=== PATIENT | male | born 1965 | race Caucasian/White ===

== ENCOUNTER 2017-02-12 06:42 | Inpatient (IN) ==
[2017-02-12] MEDS ORDERED: Heparin 1,000 UNITS/500 mL NS 500 ML ONE (06:49)
[2017-02-12] MEDS ORDERED: *HR* Propofol 200 MG/20 ML VIAL IVP ONE (07:01)
[2017-02-12] MEDS ORDERED: *HR* Midazolam HCl 2 MG/2 ML VIAL ONE ×2 (07:01→08:20)
[2017-02-12] MEDS ORDERED: *HR* FentaNYL (PF) 100 MCG/2 ML VIAL ONE (07:01)
[2017-02-12] MEDS ORDERED: *HR* Succinylcholine 200 MG/10 ML VIAL IVP ONE (07:02)
[2017-02-12] MEDS ORDERED: Lidocaine -MPF 4% 5 ML AMPUL ONE (07:02)
[2017-02-12] MEDS ORDERED: *HR* Rocuronium Bromide 50 MG/5 ML VIAL ONE (07:02)
[2017-02-12] MEDS ORDERED: Lidocaine -MPF 2% 2 ML VIAL ONE ×2 (07:02→09:01)
[2017-02-12] MEDS ORDERED: *HR* Remifentanil 2 MG VIAL IVP ONE ×2 (07:02→10:54)
[2017-02-12] MEDS ORDERED: *HR* Phenylephrine 10 MG/ML VIAL ONE ×2 (07:02→10:58)
[2017-02-12] MEDS ORDERED: Albuterol 2.5 MG/3 ML NEBULIZER IH ONE (07:04)
[2017-02-12] MEDS ORDERED: CeFAZolin Pre 2,000 MG/100 ML 2,000 MG/100 ML BAG IVPB ONE (07:04)
[2017-02-12] MEDS ORDERED: Ringers Solution, Lactated 1,000 ML IVC SCH (07:15)
[2017-02-12] MEDS ORDERED: Heparin 1,000 UNITS/500 mL NS 1,500 ML ONE (07:35)
--- NOTE | 2017-02-12 07:36 | Anesthesia Evaluation PreOp ---
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 Other Medical History: Denies Any Significant HX Anesthesia History: No Prior Anesthetic Complications Alcohol Use: heavy, recent Drug use: none Medications and Allergies Atenolol 100 mg PO DAILY 02/08/17 [History] Chlorthalidone 25 mg PO DAILY 02/08/17 [History] Cilostazol [Pletal] 100 mg PO BID 02/08/17 [History] Hydroxyzine HCl 25 mg PO HS PRN 02/08/17 [History] Lisinopril [Zestril] 20 mg PO DAILY 02/08/17 [History] Allergies aspirin Allergy (Verified 02/12/17 07:24) Itching - Meds/Allergy Pre-op Review Medications Reviewed: Yes Allergies Reviewed: Yes Beta Blockers on Current Med List: Yes (Took Atenolol today 0500) Anesthesia Results - Labs Laboratory Tests 01/28/17 01/28/17 11:31 11:31 Hgb 16.2 Hct 49.4 Plt Count 281 Sodium 131 L Potassium 4.1 BUN 7 L Creatinine 0.75 - Imaging EKG: report reviewed (NSR) Anesthesia Exam O2 Sat Height 1.73 m Height 1.73 m Height 1.73 m Weight 88.451 kg Weight 88.451 kg Weight 88.451 kg O2 Sat by Pulse Oximetry 99 Vital Signs Temp Pulse Resp BP Pulse Ox 99.1 F 84 18 138/95 99 02/12/17 07:14 02/12/17 07:14 02/12/17 07:14 02/12/17 07:14 02/12/17 07:14 Height: 5'8 Weight: 195 lbs NPO (# of Hours): MN Pain Scale: 0 - HEENT Pupil (Motor): Pupils equal, EOMI Mallampati: II Teeth: Normal Oral Opening: Greater than 3 - SCHOOL PSYCHOLOGICAL EXAMINER LOC: Oriented SCHOOL PSYCHOLOGICAL EXAMINER Motor: Normal RUE, Normal LUE, Normal RLE, Normal LLE, Normal Face SCHOOL PSYCHOLOGICAL EXAMINER Sensory: Normal: RUE, LUE, RLE, LLE, Face - Cardiac Rhythm: Regular Murmur: None JVD: No Carotid Bruit: No - Pulmonary Breath Sounds: bilateral Clear Respiratory Effort: Symmetrical Anesthesia Assess/Plan ASA Score: 3 (PAD HTN) Modified [place] Scale for Level of Consciousness: Cooperative, oriented, and tranquil Anesthetic Plan: General Monitoring Plan: Standard Monitors, A-Line Recovery Plan: PACU (Discussed GA, agrees to proceed)
--- NOTE | 2017-02-12 07:49 | History & Physical Report ---
Date of Encounter: 02/12/17 Time of Encounter: 07:48 24 Hour HP Update - Instructions Instructions: If the History and Physical is less than 30 days old and was completed prior to A.M. admission and or procedure and has NOT been updated on calendar day of procedure please complete this update prior to performing procedure. - Update Patient reports changes in Medical Condition: No Changes in examination, assessment, or condition: No Changes in Medication: No Preop tests/diagnostics Reviewed: Yes Surgery Remains Indicated: Yes Consent for Planned Operative Procedure(s) Verified: Yes - Pre-Operative Checklist Preoperative Checklist Indicated: Yes Prophylactic Antibiotic Ordered: Yes Home Medications Include Beta Benedicto: Yes Beta Benedicto Taken Today (Day of Surgery): Yes Beta Benedicto Taken Yesterday (Day Prior to Surgery): Yes Is VTE Prophylaxis Indicated?: Yes
[2017-02-12] MEDS ORDERED: EPHEDrine 50 MG/ML VIAL ONE (08:43)
[2017-02-12] MEDS ORDERED: *HR* Heparin 5,000 UNIT/ML VIAL ONE (08:55)
[2017-02-12] MEDS ORDERED: Water for inj. (sterile) 10 ML IV ONE (08:55)
[2017-02-12] MEDS ORDERED: Dexamethasone 4 MG/ML VIAL ONE (09:01)
[2017-02-12] MEDS ORDERED: Ondansetron 4 MG/2 ML VIAL ONE (09:01)
[2017-02-12] MEDS ORDERED: *HR* HYDROmorphone 2 MG/ML SYRINGE ONE (10:10)
[2017-02-12] MEDS ORDERED: Dexamethasone 4 MG/ML VIAL IVP ONE (10:11)
[2017-02-12] MEDS ORDERED: *HR* Labetalol 100 MG/20 ML MDV IVP PRN (10:11)
[2017-02-12] MEDS ORDERED: *HR* HYDROmorphone (PF) 1 MG/ML SYRINGE IVP PRN (10:11)
[2017-02-12] MEDS ORDERED: Ketorolac 15 MG/ML VIAL IVP ONE (10:11)
[2017-02-12] MEDS ORDERED: *HR* Meperidine 25 MG/ML SYRINGE IVP PRN (10:11)
[2017-02-12] MEDS ORDERED: Ondansetron 4 MG/2 ML VIAL IVP ONE (10:11)
--- NOTE | 2017-02-12 10:26 | Anesthesia Procedures ---
Date of Encounter: 02/12/17 Time of Encounter: 08:15 Procedures: Anesthesia - Arterial Line Consent obtained: verbal consent Time out performed: Yes Sedation: Versed (mg): 4 (documented on anesthetic record) Supplemental Oxygen via Nasal Cannula (L/min): 15 (via pre-O2 Facemask) Local Anesthetic: Lidocaine 1% Amount of Anesthetic used (mls): 0.5 Size (Gauge): 20 Length (inches): 1 3/4 Technique Used: sterile prep, direct puncture technique Post-Procedure: line taped into place Patient tolerated procedure: well Complications: none Site: Radial L Vitals: see anesthesia record
[2017-02-12] MEDS ORDERED: Heparin 1,000 UNITS/500 mL NS 1,000 ML ONE (11:04)
--- NOTE | 2017-02-12 13:34 | Operative Note ---
Date of procedure: 02/12/17 Pre-op diagnosis: PAD/claudication Post-op diagnosis: same Procedure: right MANAGER WIRELESS, Ext Iliac, SFA, and Profunda endarterectomy with bovine patch angioplasty right iliac angiogram right lower ext angiogram right SFA SPORTS MANAGEMENT PROFESSOR balloon angioplasty with 5 x 200 mm balloon left MANAGER WIRELESS endarterectomy left to right femoral-femoral bypass with 6 mm PTFE Complications: none Anesthesia: GETA Surgeon: Darvin Garg Estimated blood loss (cc): 250 Specimen: none Condition: stable Disposition: PACU Procedure in Detail: History Christiano Christianson is a 51-year-old white male who comes to the operating room today for a combination of both inflow and outflow occlusive disease. He has been treated initially with pharmacologic agents. He had no response. He underwent Celestine last week that demonstrated occlusion of the entire right iliac system as well as occlusion of the right common femoral artery and the right superficial femoral artery. Due to the number of vessels involved was not an appropriate candidate for an endovascular intervention in the interim suite and so he now comes to operating room. His symptoms are lifestyle threatening and he has failed conservative management. Procedure After informed consent was obtained the patient was taken to the operating room. General endotracheal anesthesia was established. The abdomen and right lower extremity and left upper thigh were sterilely prepped and draped. A timeout protocol was observed. An incision was then made in the right groin to expose the femoral artery. This was a long and wide dissection so that the external iliac as well as the femoral artery and proximal superficial femoral and profunda femoris arteries were exposed and controlled. The vessel had no pulse and had menstruation of marked atherosclerotic disease. Heparin was then administered area the artery was then opened in the distal aspect of the common femoral artery and the arteriotomy was carried proximally for the length of the vessel and then distally into the proximal superficial femoral artery. The plaque was a thick heterogeneous calcific plaque. A formal endarterectomy was then performed of the distal external iliac artery, the entire common femoral artery, the proximal superficial femoral artery, and the orifice of the right profunda femoris artery. With this done a bovine pericardial patch angioplasty was performed and was sewn into position using 2 6-0 Prolene sutures. The next step of the procedure was to address the inflow issue on the right. An 18-gauge needle was then used to puncture the bovine pericardial patch. A short 6 [place] sheath was placed. An antegrade was then performed of the right iliac artery system via the sheath. With this nonselective angiogram a Glidewire was then inserted into the chronic total occlusion of the right iliac system. This wire passed into a dissection plane and could not be passed back into the true lumen. With these attempts at an endovascular solution to this right iliac system being unsuccessful this area was abandoned and the patient would then need bypass grafting. The 6 [place] sheath was then redirected into the superficial femoral artery. An angiogram was obtained of the right lower extremity. This demonstrated occlusion of the superficial femoral artery and a patent profunda femoris. The endarterectomy of the orifice of the profunda femoris artery was widely patent. Then under fluoroscopic control a Glidewire was inserted into the right leg. It was advanced through the right superficial femoral chronic total occlusion. Confirmation of passing a wire into the distal true lumen was performed. A 5 x 200 mm balloon was then inserted into the right superficial femoral artery. This was inflated. After a number of inflations the vessel was restudied with completion angiogram through the 6 [place] sheath. This demonstrated patency of the vessel and mormon of pulsatile flow and continuous flow into the popliteal system. With this now accomplished attention was then directed to the left side. The left common femoral artery was then exposed through an oblique incision. Dissection was carried down through the soft tissue to reveal the femoral artery and the femoral bifurcation. Control was obtained of the vessels. A deep subcutaneous anus tunnel was then created. A 6 mm PTFE graft was selected for the left to right femoral-femoral bypass. Upon opening the left common femoral artery a significant amount of plaque was encountered. This plaque required endarterectomy which was a formal endarterectomy of the distal half of the common femoral artery and the orifice of the superficial femoral artery. Then using the bypass graft as a patch the anastomosis over the left common femoral artery was performed using endograft to side of artery with 6-0 Prolene. The graft was then clamped and hemostasis achieved. Attention was then directed to the recipient anastomosis at the right groin. This was made over the bovine pericardial patch. The 6 [place] sheath was then removed and a patch Army was performed. An end of graft to side of the patched right common femoral artery was then performed using 6-0 Prolene. After appropriate backbleeding and flushing the graft was opened. Excellent pulsatile flow was achieved. The patient demonstrated Doppler signals at the cells pedis posterior tibial artery at the right ankle. With this done the 2 groin incisions were irrigated. Hemostasis was achieved in these incisions. The wounds were then closed using absorbable suture. There were no intraoperative complications. The patient tolerated the procedure well. The patient was extubated in the operating room and taken to the recovery room in stable condition.
--- NOTE | 2017-02-12 14:31 | Anesthesia Evaluation Post Op ---
Date of Encounter: 02/12/17 Time of Encounter: 14:30 - Vital Signs Vital Signs: Vital Signs/O2 Sat/Glucose, Most Recent Temp Pulse Resp BP Pulse Ox 97.7 F 85 16 110/71 93 02/12/17 14:08 02/12/17 14:18 02/12/17 14:18 02/12/17 14:18 02/12/17 14:18 - Lungs Lungs: Clear Ascult./Percussion - Airway Airway: Non-obstructed - Cardiovascular Regular Rate - Mental Status Mental Status: Alert & Oriented, Answers Appropriately - Pain Pain Scale: 0 Pain Scale used: Numeric (1 - 10) - Nausea Vomiting Nausea Vomiting: Not Present - Hydration Hydration: Ice chips, Davidson catheter Notes: 02/12/17 14:31 AAOx3,VSS with no complications - Discharge PostOp Status: Transfer Patient to floor
[2017-02-12] MEDS ORDERED: Naloxone 0.4 MG/ML INJ IVP PRN (14:53)
[2017-02-12] MEDS ORDERED: *HR* Morphine 2 MG/ML SYRINGE IVP PRN ×2 (14:53)
[2017-02-12] MEDS ORDERED: Acetaminophen 325 MG TABLET PO PRN (14:53)
[2017-02-12] MEDS ORDERED: hydrOXYzine pamoate 25 MG CAPSULE PO PRN (14:53)
[2017-02-12] MEDS ORDERED: Ondansetron 4 MG/2 ML VIAL IVP PRN (14:53)
[2017-02-12] MEDS: ceFAZolin 2,000 MG in D5% in Water 100 ML IVPB SCH ×2 (15:43→23:39)
[2017-02-12] MEDS: *HR* HYDROcodone/Acet 5/325 mg TABLET PO PRN (23:52)
[2017-02-13] MEDS: *HR* HYDROcodone/Acet 5/325 mg TABLET PO PRN (05:58)
[2017-02-13 06:14] LABS: Basophils % 0.2 %; Eosinophils # 0.2 K/mcL (0.0-0.6); Eosinophils % 1.2 %; Hemoglobin 13.1 g/dL (12.9-16.9); Immature Granulocytes % 0.4 % (0-4); Lymphocytes # 2.6 K/mcL (0.6-4.6); Lymphocytes % 19.6 %; Mean Corpuscular HGB Conc 33.6 g/dL (31.6-35.5); Mean Corpuscular Hemoglobin 33.1 pg (28.0-33.3); Mean Corpuscular Volume 98.5 fL (83.0-100.0); Mean Platelet Volume 9.7 fL (9.4-12.4); Monocytes # 1.1 K/mcL (0.0-1.3); Monocytes % 8.6 %; Neutrophils # 9.1 K/mcL (1.6-8.9); Platelet Count 215 K/mcL (140-400); Red Blood Count 3.96 M/mcL (4.19-5.50); Red Cell Distribution Width 12.8 % (11.5-14.5)
[2017-02-13 06:26] LABS: BUN/Creatinine Ratio 14 (6-26); Blood Urea Nitrogen 9 mg/dL (8-26); Calcium 8.5 mg/dL (8.6-10.8); Carbon Dioxide 23 mEq/L (19-29); Chloride 103 mEq/L (98-109); Glucose 101 mg/dL (70-99); Osmolality,Calculated 279 (280-300); Potassium 4.3 mEq/L (3.5-4.5); Sodium 135 mEq/L (136-145); eGFR For African Americans > 60 (> 60); eGFR For Non-African Americans > 60 (> 60)
[2017-02-13] MEDS ORDERED: Lisinopril 20 MG TABLET PO SCH (09:00)
[2017-02-13] MEDS: ceFAZolin 2,000 MG in D5% in Water 100 ML IVPB SCH (09:41)
[2017-02-13 12:31] VITALS: BP 116/71
--- NOTE | 2017-02-13 16:42 | Discharge Summary ---
Date of Encounter: 02/13/17 Time of Encounter: 16:40 - Discharge Diagnosis (1) PAD (peripheral artery disease) Priority: Primary Status: Acute Comments: Patient has severe lifestyle limiting claudication. Angiogram demonstrated right common iliac and external iliac artery occlusion and right common femoral and superficial femoral artery occlusion. He was admitted for a combination of endovascular and open revascularization. - Discharge Medications Prescriptions: HYDROcodone/Acet 5/325 mg [[place] 5-325 mg] 1 tab PO Q6HR PRN #14 tablet PRN Reason: Moderate Pain Home Medications: Atenolol 100 mg PO DAILY 02/08/17 [History] Chlorthalidone 25 mg PO DAILY 02/08/17 [History] Cilostazol [Pletal] 100 mg PO BID 02/08/17 [History] Hydroxyzine HCl 25 mg PO HS PRN 02/08/17 [History] Lisinopril [Zestril] 20 mg PO DAILY 02/08/17 [History] HYDROcodone/Acet 5/325 mg [[place] 5-325 mg] 1 tab PO Q6HR PRN #14 tablet [Rx] Allergies/Adverse Reactions: Allergies aspirin Allergy (Verified 02/12/17 07:24) Itching Date of admission: 02/12/17 14:43 Primary care physician: Mary Garcia Consults: nothing Procedure(s) Performed: [id number] femoral-femoral bypass graft with bilateral femoral endarterectomies and right superficial femoral artery ETL DATA ARCHITECT balloon angioplasty Discharging clinician: Darvin Garg Anticipated date of discharge: 02/13/17 - Patient Status Disposition: Home, Self-Care Condition: Good Functional capacity at discharge: independent ambulation Overall status at discharge: patient is progressing back to baseline - Discharge Instructions Follow Up With: Mary Alfredo MD [Primary Care Provider] - 02/20/17 2:00 pm () Darvin Garg MD [Partnered Physician] - 03/06/17 1:30 pm Additional Instructions: Keep groin incisions dry for total of 5 days following surgery. No manual labor. No lifting greater than 10 pounds. No automobile driving. Patient is encouraged to walk 20 minutes twice a day. He may use stairs when necessary. Patient may walk both inside and outside when necessary. Patient is to resume usual home medications. - Diet and Activity Activity: increase activity as tolerated Diet: advance to your usual diet - Hospital Course Hospital course: Mr. Velasquez is a 51 year old male This severe lifestyle limiting claudication and multilevel occlusive disease. He was taken to the operating room for an extensive revascularization for both inflow and outflow obstruction. The patient tolerated the procedure well. Postoperatively he had a warm right foot with excellent Doppler signals. The patient had an uneventful postoperative recovery. He was felt fit for discharge on postoperative day #1. - Time Spent with Patient Total time spent providing and/or coordinating discharge services: Exam General: Present: Conversant, No Apparent Distress HEENT: Present: Atraumatic, Normocephaly Neck: Absent: JVD Neuro: Present: Alert and responsive, No focal deficits noted Abdomen: Present: Soft, Non-tender Vascular: Present: Normal capillary refill, Surgical incisions (Surgical incisions are clean and dry. There is no hematoma.), Other (Patient has excellent Doppler signals at the right ankle.) Skin: Present: No rashes noted on visualized skin Musculoskeletal: Present: No Chest Wall Tenderness - VTE Documentation of Mechanical Device: Intermittent pneumatic compression device
== END 2017-02-13 17:16 | disposition home or self-care (01) | DRG 271 ==
LOC: SAMDAY 06:42 → 2NNU 14:43
PROVIDERS: ADMIT Surgery Vascular Surgery; ATTEND Surgery Vascular Surgery
PROC: VASFFBG (ICD-10-PCS; 2017-02-12 08:15)

== ENCOUNTER 2018-01-14 06:12 | Inpatient (IN) ==
[2018-01-14] MEDS ORDERED: CeFAZolin Syr 2,000MG/20 ML 2,000 MG/20 ML SYRINGE IVPB ONE (06:28)
[2018-01-14] MEDS ORDERED: Albuterol 2.5 MG/3 ML NEBULIZER IH ONE (06:29)
[2018-01-14] MEDS ORDERED: Ringers Solution, Lactated 1,000 ML IVC SCH (06:30)
[2018-01-14] MEDS ORDERED: Albuterol 2.5 MG/3 ML NEBULIZER ONE (06:31)
--- NOTE | 2018-01-14 06:46 | Anesthesia Evaluation PreOp ---
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 Other Medical History: Denies Any Significant HX Anesthesia History: No Prior Anesthetic Complications, Past Anesthesia ( multiple vascular surgeries) Alcohol Use: occasionally, recent Drug use: none Medications and Allergies Atenolol 100 mg PO DAILY 02/08/17 [History] Chlorthalidone 25 mg PO DAILY 02/08/17 [History] Cilostazol [Pletal] 100 mg PO BID 02/08/17 [History] Lisinopril [Zestril] 20 mg PO DAILY 02/08/17 [History] hydrOXYzine HCl [Hydroxyzine HCl] 25 mg PO HS PRN 02/08/17 [History] HYDROcodone/Acet 5/325 mg [[place] 5-325 mg] 1 tab PO Q6HR PRN #14 tablet [Rx] 3 Allergy/AdvReac Type Severity Reaction Status Date / Time aspirin Allergy Itching Verified 02/12/17 07:24 - Meds/Allergy Pre-op Review Medications Reviewed: Yes Allergies Reviewed: Yes Beta Blockers on Current Med List: Yes If Beta Blockers taken, Date/Time (Last Dose taken): today 514 Anesthesia Results - Labs Laboratory Tests 01/06/18 01/06/18 01/06/18 10:27 10:27 10:27 Hgb 17.0 H Hct 51.0 H Plt Count 267 PT 11.6 INR 1.1 APTT 29.0 Sodium 138 Potassium 3.9 BUN 9 Creatinine 0.72 - Imaging EKG: report reviewed (SINUS RHYTHM) Anesthesia Exam Selected Entries 01/14/18 06:31 Temperature 98.7 F Pulse Rate 83 Respiratory Rate 18 Blood Pressure 133/89 O2 Sat by Pulse Oximetry 97 Weight: 83kg NPO (# of Hours): 8 - HEENT Pupil (Motor): EOMI Mallampati: II Teeth: Normal Oral Opening: Greater than 3 - MAINTENANCE REPAIRER LOC: Oriented MAINTENANCE REPAIRER Motor: Normal RUE, Normal LUE, Normal RLE, Normal LLE, Normal Face MAINTENANCE REPAIRER Sensory: Normal: RUE, LUE, RLE, LLE, Face - Cardiac Rhythm: Regular Murmur: None - Pulmonary Breath Sounds: bilateral Clear Respiratory Effort: Symmetrical Anesthesia Assess/Plan ASA Score: 3 Modified [place] Scale for Level of Consciousness: Cooperative, oriented, and tranquil Anesthetic Plan: General Monitoring Plan: Standard Monitors, A-Line Recovery Plan: PACU (agrees to GA and lines)
[2018-01-14] MEDS ORDERED: Heparin 1,000 UNITS/500 mL 500 ML ONE (07:10)
[2018-01-14] MEDS ORDERED: Lidocaine -MPF 1% 2 ML VIAL ONE (07:14)
[2018-01-14] MEDS ORDERED: Heparin 1,000 UNITS/500 mL 1,500 ML ONE (07:20)
[2018-01-14] MEDS ORDERED: *HR* Propofol 200 MG/20 ML VIAL IVP ONE (07:23)
[2018-01-14] MEDS ORDERED: Dexamethasone 4 MG/ML VIAL ONE ×2 (07:23→10:49)
[2018-01-14] MEDS ORDERED: Lidocaine -MPF 4% 5 ML AMPUL ONE (07:23)
[2018-01-14] MEDS ORDERED: *HR* Midazolam HCl 2 MG/2 ML VIAL ONE (07:23)
[2018-01-14] MEDS ORDERED: Lidocaine -MPF 2% 2 ML VIAL ONE ×2 (07:23→07:25)
[2018-01-14] MEDS ORDERED: *HR* FentaNYL (PF) 100 MCG/2 ML VIAL ONE (07:23)
[2018-01-14] MEDS ORDERED: *HR* Succinylcholine 200 MG/10 ML VIAL IVP ONE (07:23)
[2018-01-14] MEDS ORDERED: Ondansetron 4 MG/2 ML VIAL ONE ×2 (07:23→10:49)
[2018-01-14] MEDS ORDERED: *HR* Phenylephrine 10 MG/ML VIAL ONE ×3 (07:24→12:12)
[2018-01-14] MEDS ORDERED: *HR* Remifentanil 2 MG VIAL IVP ONE ×2 (07:31→11:02)
--- NOTE | 2018-01-14 07:32 | History & Physical Report ---
Date of Encounter: 01/14/18 Time of Encounter: 07:25 24 Hour HP Update - Instructions Instructions: If the History and Physical is less than 30 days old and was completed prior to A.M. admission and or procedure and has NOT been updated on calendar day of procedure please complete this update prior to performing procedure. - Update Patient reports changes in Medical Condition: No Changes in examination, assessment, or condition: No Changes in Medication: No Preop tests/diagnostics Reviewed: Yes Surgery Remains Indicated: Yes Consent for Planned Operative Procedure(s) Verified: Yes - Pre-Operative Checklist Preoperative Checklist Indicated: Yes Prophylactic Antibiotic Ordered: Yes Home Medications Include Beta Benedicto: Yes Beta Benedicto Taken Today (Day of Surgery): Yes Beta Benedicto Taken Yesterday (Day Prior to Surgery): Yes Is VTE Prophylaxis Indicated?: Yes
[2018-01-14] MEDS ORDERED: Isovue-300 50 ML VIAL IVP ONE (08:19)
[2018-01-14] MEDS ORDERED: *HR* Heparin 5,000 UNIT/ML VIAL ONE ×2 (08:24→10:16)
[2018-01-14] MEDS ORDERED: Ketamine *HR* 500 MG/10 ML MDV ONE (08:24)
[2018-01-14] MEDS ORDERED: *HR* Promethazine 25 MG/ML VIAL IVP PRN (09:13)
[2018-01-14] MEDS ORDERED: *HR* Metoprolol 5 MG/5 ML VIAL IVP PRN (09:13)
[2018-01-14] MEDS ORDERED: *HR* PHENYLEPHRINE 1,000 MCG/10 ML SYRINGE IVP ONE ×3 (10:55→11:31)
[2018-01-14] MEDS ORDERED: Heparin 1,000 UNITS/500 mL 1,000 ML ONE (12:25)
[2018-01-14 12:36] LABS: ABG Base Excess -3 mEq/L (-2 to 3); ABG Chloride 106 mEq/L (98-107); ABG Glucose 141 mg/dL (60-95); ABG HCO3 24 mEq/L (21-27); ABG Oxygen Saturation 99 % (95-98); ABG PCO2 46 mmHg (35-45); ABG PH 7.32 pH Units (7.32-7.45); ABG PO2 168 mmHg (85-104); ABG TCO2 25 mEq/L (20-26)
[2018-01-14] MEDS ORDERED: Sodium Bicarbonate 50 MEQ/50 ML VIAL ONE (12:51)
[2018-01-14 13:41] LABS: ABG Base Excess -2 mEq/L (-2 to 3); ABG Chloride 106 mEq/L (98-107); ABG Glucose 142 mg/dL (60-95); ABG HCO3 24 mEq/L (21-27); ABG Oxygen Saturation 100 % (95-98); ABG PCO2 46 mmHg (35-45); ABG PH 7.33 pH Units (7.32-7.45); ABG PO2 191 mmHg (85-104); ABG TCO2 25 mEq/L (20-26)
--- NOTE | 2018-01-14 14:18 | Operative Note ---
Date of procedure: 01/14/18 Pre-op diagnosis: PAD/claudication Post-op diagnosis: same Procedure: thrombectomy of fem-fem bypass graft redo endarterectomy of right DISCOVERY GUIDE with bovine patch angioplasty right femoral to at the knee popliteal bypass graft with reversed GSV Complications: 0 Anesthesia: GETA Surgeon: Darvin Garg Was there an head start assistant teacher present: No Estimated blood loss (cc): 250 Specimen: 0 Disposition: PACU Procedure in Detail: History Christiano Velasquez is a 52-year-old white male with known right iliac artery occlusion and right superficial femoral artery disease. He had undergone bilateral femoral endarterectomies, left to right femoral-femoral bypass graft, and right superficial femoral artery balloon angioplasty in February 2017. The right iliac occlusion could not be addressed endovascularly. As part of his follow-up he had been in the office recently and he reported recurrence of his symptoms with minimal walking tolerance and significant claudication. This was impacting his ability to work and his activities of daily living. Noninvasive finding had demonstrated that his bypass graft was occluded as was the superficial femoral artery. He now comes the operating room to thrombectomize the femoral-femoral graft and to restore flow into the leg. Procedure After informed consent was obtained the patient was taken to the operating room. General endotracheal anesthesia was established. The abdomen groins and right lower extremity were then sterilely prepped and draped. A timeout protocol was observed. The right groin surgical area was opened again. Dissection was carried down to reveal the femoral-femoral graft and the [place] femoral circulation. As expected there was significant scar tissue present in this region. After a rather long and tedious dissection controls obtained of the vessels. Heparin was given in a dose of 5000 units. A transverse graftotomy was made over the root of the graft over the common femoral artery. A large amount of chronic thrombus was encountered. There was also atherosclerotic debris present distally. A 4-[place] catheter was then passed retrograde through the graft. Large amount of clot was room in pulsatile flow was restored. The graft was then flushed with heparinized saline and clamped. The orifice of the profunda femoris artery was also inspected and atherosclerotic material and clot was removed from this orifice with back bleeding restarted. A 4-[place] Cata catheter was also passed into the artery as well. Attention was then directed into the superficial femoral artery. Attempts at passing a 4-[place] Cata catheter antegrade into the superficial femoral artery were unsuccessful. Therefore the graftotomy was carried through the toe of the anastomosis and onto the proximal superficial femoral artery. This artery was markedly sclerotic. There was essentially no lumen present. It was judged that this vessel would not respond to any endovascular interventions and a bypass graft was necessary. The second portion of the procedure was then performed and that was a redo endarterectomy of the common femoral artery and the takeoff of the profunda and proximal superficial femoral artery. A septal dissector was used to remove this material. After this was accomplished a bovine pericardial patch was sewn into position. Next a harvest of the greater saphenous vein was performed of the right thigh. Dissection was carried on the length of the vein. This was carried to the knee. The vein was found adequate in size and caliber. He was then harvested and flushed with heparinized saline. Dissection was then made of the popliteal artery. This was found to be a diseased vessel and so therefore the dissection was carried distally to the area at the knee. With this done a subsartorial tunnel was created. The proximal anastomosis was performed in an end-to-side fashion with the graft in a reversed orientation. This was sewn with 6-0 Prolene. After this was done the graft was passed through the subsartorial tunnel. The distal anastomosis was then made to the at the knee popliteal. This vessel was diseased and thrombus was found in the very proximal part of the arteriotomy. Plaque was present on the posterior aspect of the vessel but it did not require endarterectomy. An end-to-side anastomosis with the vein was then performed. After appropriate backbleeding and flushing the graft was opened. Pulsatile flow was then restored into the calf. Doppler signals are identified at the ankle. The wounds were then irrigated and closed with absorbable suture. Dry sterile dressings were applied. The patient was asked to be treated in the operating room and taken to the recovery room in stable condition.
[2018-01-14] MEDS: *HR* HYDROmorphone (PF) 1 MG/ML SYRINGE IVP PRN ×2 (14:35→14:40)
--- NOTE | 2018-01-14 15:04 | Anesthesia Evaluation Post Op ---
Date of Encounter: 01/14/18 Time of Encounter: 15:04 - Vital Signs Vital Signs: Selected Entries 01/14/18 14:59 Temperature 99.0 F Pulse Rate 90 Respiratory Rate 14 Blood Pressure 108/64 O2 Sat by Pulse Oximetry 97 Oxygen Flow Rate (LPM) 2 - Lungs Lungs: Clear Ascult./Percussion - Airway Airway: Non-obstructed - Mental Status Mental Status: Alert & Oriented, Answers Appropriately - Pain Pain Scale: 0 Pain Scale used: Numeric (1 - 10) - Nausea Vomiting Nausea Vomiting: Not Present - Hydration Hydration: Tolerates oral liquids, Davidson catheter - Discharge PostOp Status: Transfer Patient to floor
[2018-01-14] MEDS ORDERED: hydrOXYzine pamoate 25 MG CAPSULE PO PRN (15:06)
[2018-01-14] MEDS ORDERED: *HR* OxyCODONE Immed Rel 5 MG TABLET PO PRN (15:06)
[2018-01-14] MEDS ORDERED: Naloxone 0.4 MG/ML INJ IVP PRN (15:06)
[2018-01-14] MEDS ORDERED: Ondansetron 4 MG/2 ML VIAL IVP PRN (15:06)
[2018-01-14] MEDS ORDERED: Acetaminophen 325 MG TABLET PO PRN (15:06)
[2018-01-14] MEDS ORDERED: *HR* Labetalol 20 MG/4 ML SYRINGE IVP PRN (15:06)
[2018-01-14] MEDS: CeFAZolin Premix DUPLEX 2,000 MG/50 ML BAG IVPB SCH ×2 (16:35→23:59)
[2018-01-14] MEDS: *HR* HYDROcodone/Acet 5/325 mg TABLET PO PRN ×2 (17:55→23:59)
[2018-01-15 04:02] LABS: Basophils % 0.3 %; Eosinophils % 0.3 %; Hematocrit 36.4 % (37.5-50.1); Hemoglobin 12.1 g/dL (12.9-16.9); Immature Granulocytes % 0.5 % (0-4); Lymphocytes # 2.3 K/mcL (0.6-4.6); Lymphocytes % 16.1 %; Mean Corpuscular HGB Conc 33.2 g/dL (31.6-35.5); Mean Corpuscular Hemoglobin 32.5 pg (28.0-33.3); Mean Corpuscular Volume 97.8 fL (83.0-100.0); Mean Platelet Volume 9.6 fL (9.4-12.4); Monocytes # 1.4 K/mcL (0.0-1.3); Monocytes % 9.9 %; Neutrophils # 10.5 K/mcL (1.6-8.9); Platelet Count 174 K/mcL (140-400); Red Blood Count 3.72 M/mcL (4.19-5.50); Red Cell Distribution Width 13.3 % (11.5-14.5); Segmented Neutrophils % 72.9 %
[2018-01-15 04:26] LABS: BUN/Creatinine Ratio 22 (6-26); Blood Urea Nitrogen 9 mg/dL (6-20); Calcium 5.7 mg/dL (8.6-10.3); Carbon Dioxide 19 mEq/L (23-29); Chloride 114 mEq/L (98-107); Glucose 106 mg/dL (70-105); Osmolality,Calculated 307 (280-300); Potassium 2.7 mEq/L (3.5-5.1); Sodium 149 mEq/L (136-145); eGFR For African Americans > 60 (> 60); eGFR For Non-African Americans > 60 (> 60)
[2018-01-15] MEDS ORDERED: Calcium Gluconate 2,000 MG in 0.9 % Sodium Chloride 50 ML IVPB ONE (04:35)
[2018-01-15] MEDS ORDERED: Calcium Gluconate 2,000 MG in 0.9 % Sodium Chloride 100 ML IVPB ONE (04:45)
[2018-01-15] MEDS: *HR* HYDROcodone/Acet 5/325 mg TABLET PO PRN ×3 (06:45→16:47)
[2018-01-15] MEDS ORDERED: 0.9 % Sodium Chloride 250 ML ONE (08:09)
[2018-01-15] MEDS: CeFAZolin Premix DUPLEX 2,000 MG/50 ML BAG IVPB SCH (08:30)
[2018-01-15] MEDS ORDERED: Nicotine 21 MG PATCH.TD24 TD SCH (09:00)
[2018-01-15] MEDS ORDERED: Potassium Chloride Elixir 20 MEQ/15 ML UDC PO ONE ×2 (09:18→12:17)
[2018-01-15] MEDS ORDERED: Potassium Chloride Elixir 20 MEQ/15 ML UDC ONE (09:40)
[2018-01-15 11:16] VITALS: BP 95/73
--- NOTE | 2018-01-15 14:29 | Discharge Summary ---
Orders not resulted at time of discharge: Pending orders 01/13/18 09:59 Red Blood Cells [BBK] Routine Date of Encounter: 01/15/18 Time of Encounter: 08:25 - Discharge Diagnosis (1) Tobacco abuse Priority: Secondary Status: Chronic Comments: Patient has a multiyear history of tobacco abuse. He also chews tobacco. Patient has been informed of the need for complete tobacco cessation. (2) Hypokalemia Priority: Secondary Status: Resolved Comments: Patient was found on morning labs on postoperative day #1 to have a markedly decreased serum potassium level. This was repleted using intravenous potassium and oral potassium supplement. (3) PAD (peripheral artery disease) Priority: Primary Status: Acute Comments: Patient has severe peripheral vascular occlusive disease. He underwent a thrombectomy of the femoral-femoral bypass graft due to a right iliac artery occlusion. He was found to have sclerosis of the right superficial femoral artery that was not amenable to endovascular manipulation. Therefore a right femoral popliteal bypass graft with vein was created after the thrombectomy and also an endarterectomy and patch angioplasty of the right common femoral artery which was a redo procedure. (4) HTN (hypertension) Priority: Secondary Status: Chronic Comments: Patient has essential hypertension. He is on 2 drug therapy for this process. Qualifiers: Hypertension type: essential hypertension Qualified Code(s): I10 - Essential (primary) hypertension - Hospital Course Hospital course: Mr. Velasquez is a 52 year old male Who presented with lifestyle limiting right lower extremity claudication. At the time of surgery the patient thrombosed femoral-femoral bypass graft was thrombectomized. An endarterectomy that was a redo procedure was performed of the common femoral artery and then a right femoral popliteal bypass graft with vein was performed in order to enhance runoff. The patient tolerated the procedure well. The patient had a pink and warm right foot. Patient had excellent Doppler signals. Also on his postoperative evaluation he was found to be hypocalcemic and hypokalemic. He was given intravenous calcium and potassium supplement as well as oral potassium supplement. Instructions were given to the patient in regards to his diet and exercise as well as wound care and medications. Time spent discussing smoking cessation with patient: 3 to 10 minutes (Need for complete tobacco cessation was emphasized.) - Time Spent with Patient Total time spent providing and/or coordinating discharge services: - Discharge Medications Prescriptions: HYDROcodone/Acet 5/325 mg [[place] 5-325 mg] 1 tab PO Q6HR PRN 7 Days #20 tablet PRN Reason: Moderate Pain Nicotine Patch [Nicoderm] 21 mg TD DAILY #30 patch.td24 Home Medications: Atenolol 100 mg PO DAILY 02/08/17 [History] Chlorthalidone 25 mg PO DAILY 02/08/17 [History] hydrOXYzine HCl [Hydroxyzine HCl] 25 mg PO HS PRN 02/08/17 [History] Lisinopril [Zestril] 10 mg PO DAILY 01/14/18 [History] HYDROcodone/Acet 5/325 mg [[place] 5-325 mg] 1 tab PO Q6HR PRN 7 Days #20 tablet 01/15/18 [Rx] Nicotine Patch [Nicoderm] 21 mg TD DAILY #30 patch.td24 01/15/18 [Rx] Allergies/Adverse Reactions: 3 Allergy/AdvReac Type Severity Reaction Status Date / Time aspirin Allergy Itching Verified 01/14/18 07:05 Date of admission: 01/14/18 15:13 Primary care physician: PCP NONE Consults: None Procedure(s) Performed: Thrombectomy of femoral-femoral bypass graft, redo right common femoral artery endarterectomy with bovine pericardial patch angioplasty, and right femoral to above-knee popliteal artery bypass graft with reverse greater saphenous vein. Discharging clinician: Darvin Garg Anticipated date of discharge: 01/15/18 Exam Vital Signs, Last 4 Hours Temp Pulse Resp BP Pulse Ox 01/15/18 11:35 98.0 F 69 18 95/73 92 01/15/18 11:14 98.0 F 69 18 95/73 92 General: Present: Conversant, No Apparent Distress, Well developed, Well nourished HEENT: Present: Atraumatic Neck: Absent: JVD Abdomen: Present: Soft Vascular: Present: Normal capillary refill, Color/Temperature (Right foot is warm and pink. Patient demonstrates a hyperemic response to successful revascularization.) Skin: Present: No rashes noted on visualized skin - Patient Status Disposition: Home, Self-Care Condition: Good Functional capacity at discharge: independent ambulation Overall status at discharge: patient is progressing back to baseline - Discharge Instructions Instructions: Femoropopliteal Bypass (DC) Follow Up With: NONE,PCP [Primary Care Provider] - 01/21/18 9:00 am Darvin Garg MD [Partnered Physician] - 02/05/18 9:45 am Additional Instructions: Keep right lower extremity incisions dry for 5 days following surgery. No lifting greater than 10 pounds. No driving. No manual labor. Encourage elevation of right lower extremity when patient is sitting to help reduce edema to the right lower extremity. Using incentive spirometer 10 times an hour while awake at home. Discard incentive spirometer after 2 weeks of use. - Diet and Activity Activity: increase activity as tolerated Diet: low fat, low cholesterol - VTE Documentation of Mechanical Device: Intermittent pneumatic compression device
== END 2018-01-15 17:15 | disposition home or self-care (01) | DRG 254 ==
LOC: SAMDAY 06:12 → 2NNU 15:13
PROVIDERS: ADMIT Surgery Vascular Surgery; ATTEND Surgery Vascular Surgery

== ENCOUNTER 2018-03-04 08:36 | Inpatient (IN) ==
[2018-03-04] MEDS ORDERED: Lidocaine -MPF 4% 5 ML AMPUL ONE (08:44)
[2018-03-04] MEDS ORDERED: *HR* Midazolam HCl 2 MG/2 ML VIAL ONE (08:44)
[2018-03-04] MEDS ORDERED: *HR* Propofol 200 MG/20 ML VIAL IVP ONE (08:44)
[2018-03-04] MEDS ORDERED: *HR* Heparin 5,000 UNIT/ML VIAL ONE ×2 (08:44→12:19)
[2018-03-04] MEDS ORDERED: *HR* FentaNYL (PF) 100 MCG/2 ML VIAL ONE (08:44)
[2018-03-04] MEDS ORDERED: *HR* Succinylcholine 200 MG/10 ML VIAL IVP ONE (08:44)
[2018-03-04] MEDS ORDERED: *HR* Phenylephrine 10 MG/ML VIAL ONE (08:44)
[2018-03-04] MEDS ORDERED: Lidocaine -MPF 2% 2 ML VIAL ONE ×2 (08:44→09:41)
[2018-03-04] MEDS ORDERED: *HR* Remifentanil 2 MG VIAL IVP ONE (08:44)
[2018-03-04] MEDS ORDERED: Heparin 1,000 UNITS/500 mL 500 ML ONE (08:44)
--- NOTE | 2018-03-04 08:44 | Anesthesia Evaluation PreOp ---
Date of Encounter: 03/04/18 Time of Encounter: 08:43 - Past History Planned Operation: Redo Fem-Fem Bypass Graft, Right Fem-Pop Thrombectomy Cardiac History: Denies any Significant Hx (HTN, Hyperlipidemia, Other (PAD) Pulmonary History: Smoker COSMETIC CONSULTANT History: Denies Any Significant HX Other Medical History: Denies Any Significant HX Anesthesia History: No Prior Anesthetic Complications, Past Anesthesia (multiple vascular surgeries) Alcohol Use: occasionally, recent Drug use: none), HTN, Hyperlipidemia Pulmonary History: Smoker COSMETIC CONSULTANT History: Denies Any Significant HX Other Medical History: Denies Any Significant HX Anesthesia History: No Prior Anesthetic Complications, Past Anesthesia ( multiple Vascular sx) Alcohol Use: occasionally, recent Drug use: none Medications and Allergies Atenolol 100 mg PO DAILY 02/08/17 [History] Chlorthalidone 25 mg PO DAILY 02/08/17 [History] hydrOXYzine HCl [Hydroxyzine HCl] 25 mg PO HS PRN 02/08/17 [History] Lisinopril [Zestril] 10 mg PO DAILY 01/14/18 [History] HYDROcodone/Acet 5/325 mg [[place] 5-325 mg] 1 tab PO Q6HR PRN 7 Days #20 tablet 01/15/18 [Rx] Nicotine Patch [Nicoderm] 21 mg TD DAILY #30 patch.td24 01/15/18 [Rx] 3 Allergy/AdvReac Type Severity Reaction Status Date / Time aspirin Allergy Itching Verified 01/14/18 07:05 - Meds/Allergy Pre-op Review Medications Reviewed: Yes Allergies Reviewed: Yes Beta Blockers on Current Med List: Yes If Beta Blockers taken, Date/Time (Last Dose taken): 03/04/2018 @ 06:00 Anesthesia Results - Labs Laboratory Tests 01/15/18 02/26/18 02/26/18 11:13 13:11 13:11 WBC Hgb Hct Plt Count INR 1.1 Sodium 136 Potassium 4.5 Chloride 101 Carbon Dioxide 26 BUN 14 Creatinine 0.81 POC Glucose 195 H 02/26/18 13:11 WBC 9.3 Hgb 14.6 Hct 44.7 Plt Count 310 INR Sodium Potassium Chloride Carbon Dioxide BUN Creatinine POC Glucose - Imaging EKG: report reviewed (SR) Anesthesia Exam NPO (# of Hours): > 8 hrs Pain Scale: 0 Pain Scale Used: Numeric (1 - 10) - HEENT Pupil (Motor): Pupils equal, EOMI Mallampati: II Teeth: Normal Oral Opening: Greater than 3 - COSMETIC CONSULTANT LOC: Oriented COSMETIC CONSULTANT Motor: Normal RUE, Normal LUE, Normal RLE, Normal LLE, Normal Face COSMETIC CONSULTANT Sensory: Normal: RUE, LUE, RLE, LLE, Face - Cardiac Rhythm: Regular Murmur: None JVD: No Carotid Bruit: No - Pulmonary Breath Sounds: bilateral Clear Respiratory Effort: Symmetrical Anesthesia Assess/Plan ASA Score: 3 Modified [place] Scale for Level of Consciousness: Cooperative, oriented, and tranquil Anesthetic Plan: General Autologous Blood: Yes Monitoring Plan: Standard Monitors, A-Line
[2018-03-04] MEDS ORDERED: CeFAZolin Syr 2,000MG/20 ML 2,000 MG/20 ML SYRINGE IVPB ONE (08:49)
[2018-03-04] MEDS ORDERED: Albuterol 2.5 MG/3 ML NEBULIZER IH ONE (08:50)
[2018-03-04] MEDS ORDERED: Heparin 1,000 UNITS/500 mL 1,500 ML ONE (08:55)
[2018-03-04] MEDS ORDERED: Isovue-300 50 ML VIAL IVP ONE (08:56)
[2018-03-04] MEDS ORDERED: Plasma-Lyte A (PH 7.4) 1,000 ML IVC SCH (09:00)
[2018-03-04] MEDS ORDERED: *HR* Rocuronium Bromide 50 MG/5 ML VIAL ONE (09:29)
--- NOTE | 2018-03-04 09:30 | History & Physical Report ---
Date of Encounter: 03/04/18 Time of Encounter: 09:30 24 Hour HP Update - Instructions Instructions: If the History and Physical is less than 30 days old and was completed prior to A.M. admission and or procedure and has NOT been updated on calendar day of procedure please complete this update prior to performing procedure. - Update Patient reports changes in Medical Condition: No Changes in examination, assessment, or condition: No Changes in Medication: No Preop tests/diagnostics Reviewed: Yes Surgery Remains Indicated: Yes Consent for Planned Operative Procedure(s) Verified: Yes - Pre-Operative Checklist Preoperative Checklist Indicated: Yes Prophylactic Antibiotic Ordered: Yes Home Medications Include Beta Benedicto: Yes Beta Benedicto Taken Today (Day of Surgery): Yes Beta Benedicto Taken Yesterday (Day Prior to Surgery): Yes Is VTE Prophylaxis Indicated?: Yes
[2018-03-04] MEDS ORDERED: *HR* PHENYLEPHRINE 1,000 MCG/10 ML SYRINGE IVP ONE ×2 (10:04→14:07)
[2018-03-04] MEDS ORDERED: EPHEDrine 50 MG/ML VIAL ONE (10:15)
--- NOTE | 2018-03-04 10:55 | Anesthesia Procedures ---
Date of Encounter: 03/04/18 Time of Encounter: 09:45 Procedures: Anesthesia - Arterial Line Consent obtained: written consent Time out performed: Yes Sedation: Versed (mg): 2 Sedation: Fentanyl (mcg): 100 Supplemental Oxygen via Nasal Cannula (L/min): 2 Local Anesthetic: Lidocaine 1% Amount of Anesthetic used (mls): 1 Size (Gauge): 20 Length (inches): 1 3/4 Technique Used: sterile prep, guide wire technique Post-Procedure: line taped into place, dry sterile dressing placed Patient tolerated procedure: well, no complications Complications: none Site: Radial L Vitals: see anesthesia record
[2018-03-04] MEDS ORDERED: *HR* OxyCODONE Immed Rel 5 MG TABLET PO PRN ×2 (10:56→16:13)
[2018-03-04] MEDS ORDERED: *HR* Labetalol 20 MG/4 ML SYRINGE IVP PRN ×2 (10:56→16:13)
[2018-03-04] MEDS ORDERED: Ondansetron 4 MG/2 ML VIAL IVP ONE (10:56)
[2018-03-04] MEDS ORDERED: *HR* Promethazine 25 MG/ML VIAL IVP PRN (10:56)
[2018-03-04] MEDS: Ringers Solution, Lactated 1,000 ML IVC SCH ×2 (11:00→14:02)
[2018-03-04] MEDS ORDERED: Dexamethasone 4 MG/ML VIAL ONE (11:07)
[2018-03-04] MEDS ORDERED: Ondansetron 4 MG/2 ML VIAL ONE ×2 (11:07→22:29)
[2018-03-04] MEDS ORDERED: *HR* Morphine 10 MG/ML VIAL ONE (12:48)
[2018-03-04] MEDS ORDERED: Esmolol 100 MG/10 ML VIAL IVP ONE (14:18)
--- NOTE | 2018-03-04 14:22 | Operative Note ---
Date of procedure: 03/04/18 Pre-op diagnosis: PAD/graft occlusions Post-op diagnosis: same Procedure: redo thrombectomy of fem-fem bypass graft redo right femoral to BK popliteal bypass graft with 6 mmm PTFE Distaflo Complications: none Anesthesia: GETA Surgeon: Darvin Garg Was there an early childhood assistant present: No Estimated blood loss (cc): 250 Specimen: 0 Condition: stable Disposition: PACU Procedure in Detail: History Christiano Velasquez is a 52-year-old white male who has significant lower extremity vascular disease. He was found to have an occluded right iliac artery system and a right superficial femoral artery occlusion. He has undergone previous interventions including angioplasty as well as a femoral-femoral bypass graft and a recent thrombectomy of the femoral-femoral bypass graft and a new right femoral to [id number] popliteal artery bypass graft using reverse greater saphenous vein. A few weeks ago the patient developed symptoms and repeat study demonstrated on duplex scanning that the grafts had occluded. He now comes the operating room for thrombectomy and possible revision to restore improve flow to the right lower extremity. Procedure Informed consent was obtained from the patient and he was taken to the operating room. General endotracheal anesthesia was established. The abdomen and groin and right lower extremity were sterilely prepped and draped. A timeout protocol was observed the right groin incision was opened up. This is a vertically oriented incision. Dissection in this area revealed marked inflammation which required a very tedious and protracted dissection in order to identify and control the recipient limb of the femoral-femoral bypass graft and the venous graft as well as the redding artery. After control was obtained 5000 unit heparin was administered intravenously. A longitudinal arteriotomy was then made over the graft would. Chronic appearing thrombus was identified. Using a [place] elevator this clot was dissected circumferentially to obtain a dissection plane. With this done a 3 and 4-Belgian Cata catheter were utilized in order to thrombectomize the femoral-femoral bypass graft. Excellent pulsatile flow was achieved. Subacute appearing material was removed. The graft was back flushed with heparinized saline and clamped. Attention was then directed to the femoral popliteal bypass graft. Dissection was carried down so that the arteriotomy was extended onto the top of the graft. The graft was solidly thrombosed and appeared to be inflamed and contracted. Attempts at passing a 3 or 4-Bel[place] Cata catheter into the vein were unsuccessful suggesting severe stenosis and stricture. The vein was judged to be nonsalvageable. Therefore a decision was made to create a new bypass graft but to the norsy-kae-rwyg popliteal artery. A second incision was then made in the locgp-mfu-hocq popliteal area. Dissection was carried down to the popliteal artery. Control was obtained proximally and distally. A subsartorial tunnel was then created. A 6 mm PTFE Distaflo graft was selected. The vena Maurice been harvested and there was no longer enough vein length to create a vein bypass. In addition I was suspicious that this vein was compromised and an in adequate conduit for use in the arterial position. Therefore the graft was passed through the tunnel and then the distal anastomosis was created end-to-side to the xxzak-stw-uhnr popliteal artery with 6-0 Prolene. No significant plaque formation was identified. With this done the graft was clamped and then attention was directed back to the right groin. The proximal anastomosis of the graft was then performed in an end-to-side fashion over the area where the graft had been opened to perform the thrombectomies. 6-0 Prolene suture was used for this anastomosis. After appropriate backbleeding and flushing the graft was opened. Pulsatile flow was then established into the right calf. The wound was irrigated with antibiotic-containing solution. Excellent Doppler signals were identified at the dorsalis pedis and posterior tibial arteries. The incisions were hemostatically dry. The wounds were then closed in layers using absorbable suture. There were no intraoperative complications. The patient was extubated in the operating room. He was taken to the recovery room in stable condition.
[2018-03-04] MEDS: *HR* HYDROmorphone (PF) 1 MG/ML SYRINGE IVP PRN ×2 (15:02→15:15)
[2018-03-04] MEDS ORDERED: Acetaminophen 325 MG TABLET PO PRN (16:13)
[2018-03-04] MEDS ORDERED: Ondansetron 4 MG/2 ML VIAL IVP PRN ×2 (16:13→22:29)
[2018-03-04] MEDS ORDERED: hydrOXYzine pamoate 25 MG CAPSULE PO PRN (16:13)
[2018-03-04] MEDS ORDERED: Naloxone 0.4 MG/ML INJ IVP PRN (16:13)
[2018-03-04] MEDS ORDERED: CeFAZolin Pre 2,000 MG/100 ML 2,000 MG/100 ML BAG IVPB SCH (16:13)
[2018-03-04] MEDS: ceFAZolin 2,000 MG in 0.9 % Sodium Chloride 100 ML IVPB SCH (17:21)
--- NOTE | 2018-03-04 17:30 | Anesthesia Evaluation Post Op ---
Date of Encounter: 03/04/18 Time of Encounter: 15:31 - Vital Signs Vital Signs: 3 Vital Signs Time 1531 BP 100/72 Pulse 90 Resp 16 O2 Sat 99 - Lungs Lungs: Clear Ascult./Percussion - Airway Airway: Non-obstructed - Cardiovascular Regular Rate - Mental Status Mental Status: Alert & Oriented, Answers Appropriately, Baseline Status - Pain Pain Scale: 4 Pain Scale used: Numeric (1 - 10) - Nausea Vomiting Nausea Vomiting: Not Present - Hydration Hydration: Ice chips, Davidson catheter - Discharge PostOp Status: Transfer Patient to floor
[2018-03-04] MEDS: *HR* HYDROcodone/Acet 5/325 mg TABLET PO PRN (20:18)
[2018-03-05] MEDS: ceFAZolin 2,000 MG in 0.9 % Sodium Chloride 100 ML IVPB SCH ×2 (00:04→07:48)
[2018-03-05] MEDS: *HR* HYDROcodone/Acet 5/325 mg TABLET PO PRN (05:00)
[2018-03-05 05:10] LABS: Basophils % 0.1 %; Hematocrit 34.7 % (37.5-50.1); Immature Granulocytes % 0.5 % (0-4); Lymphocytes # 1.1 K/mcL (0.6-4.6); Lymphocytes % 8.8 %; Mean Corpuscular HGB Conc 33.7 g/dL (31.6-35.5); Mean Corpuscular Hemoglobin 33.2 pg (28.0-33.3); Mean Corpuscular Volume 98.6 fL (83.0-100.0); Mean Platelet Volume 9.9 fL (9.4-12.4); Monocytes # 0.9 K/mcL (0.0-1.3); Monocytes % 7.3 %; Platelet Count 190 K/mcL (140-400); Red Blood Count 3.52 M/mcL (4.19-5.50); Red Cell Distribution Width 12.7 % (11.5-14.5); Segmented Neutrophils % 83.3 %
[2018-03-05 05:31] LABS: BUN/Creatinine Ratio 14 (6-26); Blood Urea Nitrogen 10 mg/dL (6-20); Calcium 8.4 mg/dL (8.6-10.3); Carbon Dioxide 26 mEq/L (23-29); Chloride 103 mEq/L (98-107); Glucose 198 mg/dL (70-105); Osmolality,Calculated 283 (280-300); Potassium 4.1 mEq/L (3.5-5.1); Sodium 134 mEq/L (136-145); eGFR For African Americans > 60 (> 60); eGFR For Non-African Americans > 60 (> 60)
[2018-03-05 05:46] LABS: Hemoglobin 11.7 g/dL (12.9-16.9)
[2018-03-05] MEDS ORDERED: ceFAZolin 1,000 MG, Sodium Chloride IRRigation 1,000 ML IR ONE (06:00)
[2018-03-05] MEDS ORDERED: *HR* Rivaroxaban 15 MG TABLET PO SCH (09:00)
--- NOTE | 2018-03-05 09:22 | Discharge Summary ---
- NOTES TO OUTPATIENT PROVIDER Notes to Outpatient Provider: Due to the recurrent thrombosis and the need for a new synthetic graft though placed below the knee the patient will require lifelong anticoagulation and Xarleto therapy was initiated prior to discharge. Date of Encounter: 03/05/18 Time of Encounter: 09:19 - Discharge Diagnosis (1) PAD (peripheral artery disease) Priority: Primary Status: Acute Comments: Patient has known history of lower extremity vascular disease including a right iliac artery occlusion and right superficial femoral artery occlusion. He has undergone previous bypass grafting and thrombectomies. He re-presented shortly after a thrombectomy and bypass graft from January. He was found to have thrombosis of the femoral-femoral and femoral-popliteal bypass. He was taken to surgery and had a thymectomy of the femoral-femoral graft. The femoral- popliteal graft was a vein graft and found to be thrombosed and sclerotic and was not salvageable. Therefore a new bypass graft was created using PTFE to the below the knee popliteal segment. (2) HTN (hypertension) Priority: Secondary Status: Chronic Comments: Patient is undergoing medical treatment for hypertension Qualifiers: Hypertension type: essential hypertension Qualified Code(s): I10 - Essential (primary) hypertension - Hospital Course Hospital course: Mr. Velasquez is a 52 year old male With known lower extremity vascular occlusive disease. As noted elsewhere he's had previous operations. He is recently re-thrombosed his bypass graft. He went to surgery yesterday and had a re-thrombectomy of his femoral-femoral graft. He had a new bypass graft created on the right side that extended from the femoral to the below the knee popliteal artery. His previous bypass graft was with vein and that was to the vhcyh-wha-corr popliteal artery. The patient had no periprocedural complications. Because of the recurrent thrombosis and the synthetic graft extending to below the knee popliteal artery the patient will be placed on lifelong anticoagulation therapy. Our preferred medication will be Xarleto. If this is not feasible for the patient he will then need to be on temporally Lovenox with conversion to Coumadin. He will then need to be followed up in the Coumadin clinic. - Time Spent with Patient Total time spent providing and/or coordinating discharge services: - Discharge Medications Prescriptions: Rivaroxaban [Xarelto] 15 mg PO BID #42 tablet Rivaroxaban [Xarelto] 20 mg PO DAILY #30 tablet Home Medications: Chlorthalidone 25 mg PO DAILY 02/08/17 [History] hydrOXYzine HCl [Hydroxyzine HCl] 25 mg PO HS PRN 02/08/17 [History] Lisinopril [Zestril] 10 mg PO DAILY 01/14/18 [History] Atenolol [Tenormin] 100 mg PO DAILY 03/04/18 [History] Atorvastatin Calcium [Lipitor] 20 mg PO HS 03/04/18 [History] Rivaroxaban [Xarelto] 15 mg PO BID #42 tablet 03/05/18 [Rx] Rivaroxaban [Xarelto] 20 mg PO DAILY #30 tablet 03/05/18 [Rx] Allergies/Adverse Reactions: 3 Allergy/AdvReac Type Severity Reaction Status Date / Time aspirin Allergy Itching Verified 03/04/18 09:10 Date of admission: 03/04/18 15:59 Primary care physician: Jacob García MD Consults: 03/04/18 16:13 Consult to Netezza Architect [CONS] Routine Reason for SW Consult: evaluate for insur coverage for Xarelto out pt therapy upon discharge Procedure(s) Performed: Redo thrombectomy of left to right femoral-femoral bypass graft Redo right lower extremity bypass graft with creation of right femoral to below- knee popliteal artery bypass graft with 6 mm PTFE Distaflo Discharging clinician: Darvin Garg Anticipated date of discharge: 03/05/18 Exam Vital Signs, Last 4 Hours Temp Pulse Resp BP Pulse Ox 03/05/18 06:41 98.5 F 70 20 114/73 100 General: Present: Conversant, No Apparent Distress, Well developed, Well nourished HEENT: Present: Atraumatic Neck: Absent: JVD Cardiac: Present: Reg Rate and Rhythm Lungs: Present: Normal Breath Sounds Neuro: Present: Alert and responsive, No focal deficits noted Abdomen: Present: Soft, Non-tender Vascular: Present: Color/Temperature (Left foot is warm), Surgical incisions ( Dressings are dry and clean.), Other (Patient has Doppler signals at left ankle) Skin: Present: No rashes noted on visualized skin - Patient Status Disposition: Home, Self-Care Condition: Good Functional capacity at discharge: independent ambulation Overall status at discharge: patient is progressing back to baseline - Discharge Instructions Instructions: Peripheral Vascular Disorders (DC), Chronic Hypertension (DC) Follow Up With: Jacob García MD [Primary Care Provider] - 03/11/18 1:30 pm Darvin Garg MD [Partnered Physician] - 03/26/18 10:30 am Additional Instructions: Removed surgical dressings tomorrow at home. Ambulate as much as possible with the goal of a minimum of 20 minutes twice a day. Elevate right lower extremity while seated and while sleeping at night. Avoid prolonged standing. Keep surgical sites dry for total of 5 days following surgery. Xarleto therapy for anticoagulation treatment - Diet and Activity Activity: increase activity as tolerated Diet: low fat, low cholesterol - VTE Documentation of Mechanical Device: Intermittent pneumatic compression device
[2018-03-05 11:24] VITALS: BP 98/58
== END 2018-03-05 16:57 | disposition home or self-care (01) | DRG 254 ==
LOC: SAMDAY 08:36 → 2NNU 15:59
PROVIDERS: ADMIT Surgery Vascular Surgery; ATTEND Surgery Vascular Surgery

== ENCOUNTER 2018-07-22 09:59 | Inpatient (IN) ==
--- NOTE | 2018-07-22 09:16 | Anesthesia Evaluation PreOp ---
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: Denies Any Significant HX Other Medical History: Denies Any Significant HX Anesthesia History: No Prior Anesthetic Complications, Past Anesthesia (Fem-Fem bypass 02/2017, Thrombectomy of Fem-Fem w/ R-SEO MARKETING SPECIALIST endarterectomy and revision Fem- Pop bypass, multiple revascularizations & redo revascularizations) Alcohol Use: occasionally, recent Drug use: none Medications and Allergies Chlorthalidone 25 mg PO DAILY 02/08/17 [History] hydrOXYzine HCl [Hydroxyzine HCl] 25 mg PO HS PRN 02/08/17 [History] Lisinopril [Zestril] 20 mg PO DAILY 01/14/18 [History] Atenolol [Tenormin] 100 mg PO DAILY 03/04/18 [History] Atorvastatin Calcium [Lipitor] 20 mg PO HS 03/04/18 [History] 3 Allergy/AdvReac Type Severity Reaction Status Date / Time aspirin Allergy Itching Verified 03/04/18 09:10 - Meds/Allergy Pre-op Review Medications Reviewed: Yes Allergies Reviewed: Yes Beta Blockers on Current Med List: Yes (Atenolol) If Beta Blockers taken, Date/Time (Last Dose taken): 07/22/2018 @ 0739 Anesthesia Results - Labs Laboratory Tests 07/16/18 07/16/18 07/16/18 09:52 09:52 09:52 WBC 9.8 Hgb 15.2 Hct 44.8 Plt Count 229 PT 10.8 INR 1.0 APTT 29.3 Sodium 134 L Potassium 3.5 Chloride 98 Carbon Dioxide 28 BUN 10 Creatinine 0.76 Est GFR (Non-Af Amer) > 60 Glucose 99 Calcium 8.9 Anesthesia Exam O2 Sat Height 1.73 m Height 1.73 m Weight 88.451 kg Weight 88.451 kg O2 Sat by Pulse Oximetry 100 Vital Signs Temp Pulse Resp BP Pulse Ox 98.2 F 71 18 133/89 100 07/22/18 10:16 07/22/18 10:16 07/22/18 10:16 07/22/18 10:16 07/22/18 10:16 Height: 5'8" Weight: 195# BMI = 30 NPO (# of Hours): MNoc - HEENT Pupil (Motor): Pupils equal, EOMI Mallampati: II Teeth: Normal Oral Opening: Greater than 3 - SHOE REPAIRER HELPER LOC: Oriented SHOE REPAIRER HELPER Motor: Normal RUE, Normal LUE, Normal RLE, Normal LLE, Normal Face SHOE REPAIRER HELPER Sensory: Normal: RUE, LUE, RLE, LLE, Face - Cardiac Rhythm: Regular Murmur: None - Pulmonary Breath Sounds: bilateral Clear Respiratory Effort: Symmetrical Anesthesia Assess/Plan ASA Score: 3 (Peripheral Vascular Dz, Smoker, HTN, Chol) Modified [place] Scale for Level of Consciousness: Cooperative, oriented, and tranquil Anesthetic Plan: General Monitoring Plan: Standard Monitors, A-Line Recovery Plan: PACU Anes Supervising Prov Stmt: PT seen/evaluated, R&B discussed, questions answered and consent obtained. Georgina Matthew MD
[~2018-07-22 09:59] MED LIST: Acetaminophen IV 1,000 MG/100 ML INFUS..BTL IVPB ONE; Famotidine 20 MG/2 ML VIAL IVP ONE
[2018-07-22] MEDS ORDERED: Albuterol 2.5 MG/3 ML NEBULIZER IH ONE (10:14)
[2018-07-22] MEDS ORDERED: CeFAZolin Syr 2,000MG/20 ML 2,000 MG/20 ML SYRINGE IVPB ONE (10:14)
[2018-07-22] MEDS ORDERED: Ringers Solution, Lactated 1,000 ML IVC SCH (10:15)
[2018-07-22] MEDS ORDERED: Heparin 1,000 UNITS/500 mL 1,500 ML ONE (11:36)
[2018-07-22] MEDS ORDERED: Lidocaine -MPF 4% 5 ML AMPUL ONE (11:50)
[2018-07-22] MEDS ORDERED: Ondansetron 4 MG/2 ML VIAL ONE (11:50)
[2018-07-22] MEDS ORDERED: *HR* FentaNYL (PF) 100 MCG/2 ML VIAL ONE (11:50)
[2018-07-22] MEDS ORDERED: *HR* Propofol 200 MG/20 ML VIAL IVP ONE (11:50)
[2018-07-22] MEDS ORDERED: Dexamethasone 4 MG/ML VIAL ONE (11:50)
[2018-07-22] MEDS ORDERED: Lidocaine -MPF 2% 2 ML VIAL ONE (11:50)
[2018-07-22] MEDS ORDERED: *HR* Succinylcholine 200 MG/10 ML VIAL IVP ONE (11:50)
[2018-07-22] MEDS ORDERED: *HR* PHENYLEPHRINE 1,000 MCG/10 ML SYRINGE IVP ONE ×4 (11:50→19:29)
[2018-07-22] MEDS ORDERED: *HR* Remifentanil 2 MG VIAL IVP ONE ×4 (11:50→20:33)
[2018-07-22] MEDS ORDERED: *HR* Midazolam HCl 2 MG/2 ML VIAL ONE (11:50)
[2018-07-22] MEDS ORDERED: *HR* Heparin 5,000 UNIT/ML VIAL ONE ×2 (11:50→14:56)
[2018-07-22] MEDS ORDERED: Heparin 1,000 UNITS/500 mL 500 ML ONE ×2 (11:50→21:32)
--- NOTE | 2018-07-22 11:56 | History & Physical Report ---
Date of Encounter: 07/22/18 Time of Encounter: 11:55 24 Hour HP Update - Instructions Instructions: If the History and Physical is less than 30 days old and was completed prior to A.M. admission and or procedure and has NOT been updated on calendar day of procedure please complete this update prior to performing procedure. - Update Patient reports changes in Medical Condition: No Changes in examination, assessment, or condition: No Changes in Medication: No Preop tests/diagnostics Reviewed: Yes Surgery Remains Indicated: Yes Consent for Planned Operative Procedure(s) Verified: Yes - Pre-Operative Checklist Preoperative Checklist Indicated: Yes Prophylactic Antibiotic Ordered: Yes Home Medications Include Beta Benedicto: Yes Beta Benedicto Taken Today (Day of Surgery): Yes Beta Benedicto Taken Yesterday (Day Prior to Surgery): Yes Is VTE Prophylaxis Indicated?: Yes
[2018-07-22] MEDS ORDERED: ceFAZolin 1,000 MG, Sodium Chloride IRRigation 1,000 ML IR ONE (12:00)
[2018-07-22] MEDS ORDERED: *HR* Promethazine 25 MG/ML VIAL IVP PRN (13:02)
[2018-07-22] MEDS ORDERED: *HR* HYDROmorphone (PF) 1 MG/ML SYRINGE IVP PRN (13:02)
[2018-07-22] MEDS ORDERED: *HR* Labetalol 20 MG/4 ML SYRINGE IVP PRN (13:02)
[2018-07-22] MEDS ORDERED: *HR* Phenylephrine 10 MG/ML VIAL ONE ×3 (18:01→22:00)
[2018-07-22 18:49] LABS: Hematocrit 35.6 % (37.5-50.1); Mean Corpuscular HGB Conc 33.4 g/dL (31.6-35.5); Mean Corpuscular Volume 95.7 fL (83.0-100.0); Mean Platelet Volume 10.2 fL (9.4-12.4); Platelet Count 217 K/mcL (140-400); Red Blood Count 3.72 M/mcL (4.19-5.50)
[2018-07-22 18:50] LABS: Hemoglobin 11.9 g/dL (12.9-16.9)
[2018-07-22 19:05] LABS: Alanine Aminotransferase 16 Units/L (7-52); Albumin 3.1 g/dL (3.5-5.7); Albumin/Globulin Ratio 1.3 (1.1-2.2); Alkaline Phosphatase 38 Units/L (34-104); Aspartate Amino Transferase 16 Units/L (13-39); BUN/Creatinine Ratio 17 (6-26); Bilirubin,Total 0.4 mg/dL (0.3-1.0); Blood Urea Nitrogen 12 mg/dL (6-20); Calcium 8.3 mg/dL (8.6-10.3); Carbon Dioxide 28 mEq/L (23-29); Chloride 110 mEq/L (98-107); Globulin 2.4 g/dL (2.4-3.5); Glucose 156 mg/dL (70-105); Osmolality,Calculated 297 (280-300); Potassium 4.3 mEq/L (3.5-5.1); Sodium 142 mEq/L (136-145); Total Protein 5.5 g/dL (6.4-8.9); eGFR For Non-African Americans > 60 (> 60)
[2018-07-22 23:11] LABS: Basophils % 0.3 %; Eosinophils % 0.1 %; Hematocrit 33.5 % (37.5-50.1); Hemoglobin 11.4 g/dL (12.9-16.9); Immature Granulocytes % 0.7 % (0-4); Lymphocytes # 1.2 K/mcL (0.6-4.6); Lymphocytes % 11.4 %; Mean Corpuscular Hemoglobin 31.4 pg (28.0-33.3); Mean Corpuscular Volume 92.3 fL (83.0-100.0); Mean Platelet Volume 9.9 fL (9.4-12.4); Monocytes # 0.6 K/mcL (0.0-1.3); Monocytes % 5.9 %; Neutrophils # 8.7 K/mcL (1.6-8.9); Platelet Count 122 K/mcL (140-400); Red Blood Count 3.63 M/mcL (4.19-5.50); Red Cell Distribution Width 14.6 % (11.5-14.5); Segmented Neutrophils % 81.6 %
[2018-07-22 23:33] LABS: BUN/Creatinine Ratio 14 (6-26); Blood Urea Nitrogen 9 mg/dL (6-20); Calcium 7.7 mg/dL (8.6-10.3); Carbon Dioxide 22 mEq/L (23-29); Chloride 114 mEq/L (98-107); Glucose 167 mg/dL (70-105); Osmolality,Calculated 294 (280-300); Potassium 4.6 mEq/L (3.5-5.1); Sodium 141 mEq/L (136-145); eGFR For Non-African Americans > 60 (> 60)
[2018-07-23] MEDS ORDERED: *HR* Heparin 5,000 UNIT/ML VIAL IVP PRN ×4 (00:56→03:23)
[2018-07-23] MEDS ORDERED: Heparin 25,000 UNIT/500 ML D5W 25,000 UNIT/500 ML BAG IVC SCH (01:00)
[2018-07-23] MEDS ORDERED: *HR* Propofol 200 MG/20 ML VIAL IVP ONE (01:07)
--- NOTE | 2018-07-23 01:46 | Operative Note ---
Date of procedure: 07/22/18 Pre-op diagnosis: recurrent right lower ext ischemia with graft thrombosis Post-op diagnosis: same Procedure: thrombectomy of right fem- BK popliteal bypass graft endarterectomy with bovine pericardial patch angioplasty of right BK pop, tibioperoneal trunk , and anterior tibial arteries redo thrombectomy of fem-fem bypass gaft right popliteal to proximal anterior tibial bypass graft with right distal calf reversed greater saphenous vein Complications: none Anesthesia: GETA Surgeon: Darvin Garg Was there an office support assistant present: No Estimated blood loss (cc): 2,400 IV fluids (cc): 8,000 Urine output (cc): 4,200 Specimen: none Condition: critical Disposition: ICU Procedure in Detail: History Christiano granados is a 53-year-old white male with a history of persistent and progressive lower extremity vascular occlusive disease. This gentleman has undergone multiple operations initially beginning with a concern about a right iliac artery occlusion. He has undergone previous femoral-femoral bypass grafts and thrombectomies. He has had a previous femoral to [id number] popliteal artery bypass graft and then most recently a femoral to below the knee pop bypass graft with synthetic. The patient had recurrent symptoms beginning about one month ago and he presented himself to the clinic. CT scan demonstrated and confirmed the clinical impression of occlusion of the graft and he now comes back to the operating room in an attempt to revascularize the right lower extremity. Procedure After informed consent was obtained the patient was taken to the operating room. General endotracheal anesthesia was established under arterial line pressure monitoring. The lower abdomen and groin and right lower extremity were sterilely prepped and draped. A timeout protocol was observed. A first incision was made at the below the knee popliteal area through the previous scar. The very thickened dense scar was encountered requiring a rather prolonged dissection in order to identify and control the synthetic graft and the underlying [place] vessels. After this was finally accomplished heparin was administered intravenously. A transverse incision was made on the graft. Using a 4 Martiniquais Cata catheter the graft was thrombectomized. There was acute and subacute thrombus present in the graft. There was mormon of flow though this was not as great as I would've expected and this was back flushed with heparin saline. The artery was then evaluated distally. Attempts at passing the Cata catheter distally were unsuccessful. This led to further dissection of the below the knee popliteal. Evaluation here revealed marked atherosclerotic change as all well as discoloration of the vessels with a white-colored stripe on the vessels indicating significant atherosclerosis which apparently was not well demonstrated on the CT angiogram prior to surgery. Because of this and the obvious severe disease present with bulky atherosclerotic material further work was necessary. Because of this runoff lesion selective control was obtained of the anterior tibial and tibial peroneal trunk as well as the popliteal artery. The amount of plaque present was quite significant and in order to adequately address at the synthetic graft anastomosis to the popliteal was judged to need to be removed so that a more complete endarterectomy could be performed and to allow better exposure to this rather deep vessel. With this done a very involved endarterectomy was performed because of very bulky dense and thick plaque involving the entire [id number] popliteal artery. The endarterectomy was performed using a septal dissector. Dissection was also made and selective endarterectomy performed of the tibial peroneal trunk and also the right anterior tibial artery. It should be noted these vessels were extremely thin- walled following completion of the endarterectomy and appeared to be very unhealthy and diseased vessels. A bovine pericardial patch was then sewn into position over this area. This was performed with 6-0 Prolene suture. It should be noted that backbleeding was demonstrated from both the anterior tibial and tibial peroneal trunk. After the bovine pericardial patch was in position a patch out of me was then performed and the femoral popliteal synthetic graft was reanastomosed. Then after appropriate evaluation the graft was opened. It was found that the graft had rethrombosed. The patient had been given adequate doses of heparin and the heparin was maintained on hourly basis. Again a 4 Martiniqu[place] Cata catheter was used to thrombectomize the graft. After this was done attention was directed to the foot. Evaluation here revealed very sluggish flow over the dorsalis pedis artery. No signal could be identified at the peroneal or posterior tibial artery. Because of this I was concerned there was further lesions present. Because of a recurrent thrombosis of the graft I was concerned there was an inflow issue. Therefore I performed a second incision in the right groin. Dissection was carried down through a markedly inflamed and scarred area so I could identify the femoral-femoral graft and the proximal aspect of the femoral-popliteal graft. After this graft was rather tediously dissected and controlled and incision was made over the sebastian of the femoral popliteal bypass graft. A combination of acute and chronic thrombus was removed. The catheter was passed retrograde into the femoral femoral bypass graft which was occluded. Clot was removed and excellent pulsatile flow was then restored. This was back flushed with heparinized saline. The catheter was then passed through the femoral- popliteal bypass graft. This was then copiously flushed both retrograde and antegrade. It should be noted that during the course of all these manipulations and repeated graft thrombectomies that there was a higher than average blood loss. Also because of the very thin vessels distally with manipulation these vessels had significant bleeding from the suture line and required repair sutures. This led to a total transfusion of 4 units of packed red blood cells and 1 unit of fresh frozen plasma. After this was done and the inflow appeared to be secured the femoral-popliteal bypass graft which had been opened through a thrombectomy site yet a third time was closed. Upon opening the graft distally there was still no flow into the foot. Therefore the concern was raised as there was a combination of now a distal outflow problem despite the endarterectomy. It been noted that a 3 and 4 Martiniquais Cata catheter could be passed through the anterior tibial artery to the level of the foot on 2 separate occasions during this procedure. Therefore it was judged that the anterior tibial was the best vessel for revascularization and so therefore the right ankle area was exposed and an incision made. The area was dissected and the greater saphenous vein was identified. This was found to be suitable for use as a bypass. A synthetic bypass into the tibial system was judged inappropriate. A portion of the vein was then removed area was flushed with hep saline. Dissection was then made of the anterior tibial artery so that a greater length of this vessel could be exposed from the medial approach before it crossed into the anterior compartment of the calf. Again with a rather deep dissection a tedious approach was necessary and the anterior tibial artery was able to be dissected and opened. It required a endarterectomy as well and once this was done the endpoint was smooth and the area was ready to receive a distal anastomotic approach. Therefore the femoral-popliteal bypass graft was opened distally. Thrombus was found yet again in this graft and so therefore a another thrombectomy of the femoral-popliteal bypass graft with a 4 Martiniquais Cata catheter was necessary. After the thrombectomy the patient had both palpable as well as visible pulsations in the synthetic graft in the vein graft. The patient also had Doppler signals. The vein graft had biphasic Doppler signals. The foot however did not have Doppler signals and was thought that the patient was hypovolemic and hypothermic. The patient needed further resuscitation. Therefore the patient will be taken to the intensive care unit following surgery and will be left intubated. The wounds were then irrigated and hemostasis achieved. The wounds were closed using absorbable suture. The skin edges were closed using nylon for the vein harvest site at the ankle. The calf and groin sites were closed using skin suraj. Dry sterile dressings were applied. The patient was then prepared and transferred from the operating room to the intensive care unit bed #2. The patient was left intubated. Patient did not require any hemodynamic drips and was taken to the intensive care unit in stable condition but intubated and mechanically ventilated. The sponge count and needle counts were correct. There were no specimens for the operation. As stated elsewhere the patient received 4 units of packed red blood cells and 1 unit of fresh frozen plasma during this operation.
[2018-07-23] MEDS ORDERED: Acetaminophen 325 MG TABLET PO PRN ×2 (02:21→03:23)
[2018-07-23] MEDS ORDERED: Ondansetron 4 MG/2 ML VIAL IVP PRN ×3 (02:21→03:23)
[2018-07-23] MEDS ORDERED: Naloxone 0.4 MG/ML INJ IVP PRN ×3 (02:21→03:23)
[2018-07-23] MEDS ORDERED: Artificial Tears SOLN 15 ML BOTTLE BOTH EYES PRN ×2 (02:21→03:23)
[2018-07-23 02:30] LABS: Hematocrit 31.3 % (37.5-50.1); Hemoglobin 10.5 g/dL (12.9-16.9); Mean Corpuscular HGB Conc 33.5 g/dL (31.6-35.5); Mean Corpuscular Hemoglobin 31.5 pg (28.0-33.3); Mean Platelet Volume 10.1 fL (9.4-12.4); Platelet Count 114 K/mcL (140-400); Red Blood Count 3.33 M/mcL (4.19-5.50)
[2018-07-23] MEDS ORDERED: FentaNYL (PF) 1,000 MCG in 0.9 % Sodium Chloride 80 ML IVC SCH (02:30)
[2018-07-23 02:32] LABS: Heparin anti-factor XA UFH 0.25 IU/mL (0.30-0.70); INR 1.1; Prothrombin Time 12.3 Seconds (9.4-12.1)
[2018-07-23 03:08] LABS: Magnesium 1.3 mg/dL (1.6-2.6); Phosphorous 4.3 mg/dL (2.7-4.5)
[2018-07-23] MEDS ORDERED: Furosemide 40 MG/4 ML VIAL IVP ONE (03:08)
--- NOTE | 2018-07-23 03:10 | Pulmonology Consult Note ---
<Abe Maagllanes - Last Filed: 07/23/18 06:47> Date of Encounter: 07/23/18 Time of Encounter: 03:07 Assessment and Plan (1) Endotracheally intubated Current Visit: Yes Status: Acute Patient currently intubated status post extensive surgery, critical care consulted for vent management. ABG reviewed. Chest x-ray reviewed, shows pulmonary vascular congestion status post large volume fluid resuscitation (8 L lactated ringers, 5% Albumin 250ml, 4 units of PRBCs, 1 unit of FFP). IV fluids stopped and 1 dose of Lasix 40mg IV given. Monitor I&Os. D/c aparicio per nursing protocol. NG tube inserted to decompress stomach Anticipate extubation later this morning. (2) PAD (peripheral artery disease) Current Visit: Yes Status: Chronic Patient with severe peripheral vascular occlusive disease on Xarelto, Xarelto was held since last week Vascuar surgery performed a thrombectomy of right fem-BK popliteal bypass graft , endarterectomy with bovine pericardial patch angioplasty of right BK pop, tibioperoneal trunk, and anterior tibial arteries, redo thrombectomy of fem-fem bypass graft, and right popliteal to proximal anterior tibial bypass graft with right distal calf reversed greater saphenous vein. CK level pending to rule out compartment syndrome Vascular surgery following (3) Anemia due to blood loss, acute Current Visit: Yes Status: Acute Intraoperative estimated blood loss was 2400cc Patient received 4 units of PRBCs, 1 unit of FFP intraoperatively HGB 10.5, previously 11.9 Trend H&H every 6 hours Continue close monitoring (4) Current use of anticoagulant therapy Current Visit: Yes Status: Chronic Patient with severe peripheral vascular occlusive disease on Xarelto, Xarelto was held since last week Patient is currently on heparin drip (5) HTN (hypertension) Current Visit: Yes Status: Chronic Resume home meds when able Qualifiers: Hypertension type: essential hypertension Qualified Code(s): I10 - Essential (primary) hypertension (6) HLD (hyperlipidemia) Current Visit: Yes Status: Acute Resume Lipitor qHS Qualifiers: Hyperlipidemia type: unspecified Qualified Code(s): E78.5 - Hyperlipidemia , unspecified (7) Hypomagnesemia Current Visit: Yes Status: Acute Mag level 1.3 Supplement Mag Continue monitoring (8) DVT prophylaxis Current Visit: Yes Status: Acute Xarelto was held since last week Patient is currently on heparin drip History of Present Illness Consult date: 07/23/18 Requesting physician: Darvin Garg Reason for consult: other (Vent management) Chief complaint: Post-op History of present illness: Mr. Velasquez is a 53 yo male with a PMH of severe peripheral vascular occlusive disease on Xarelto, HTN, HLD, and remote tobacco dependence who presented to the ICU intubated and lightly sedated s/p vascuar surgery performed a thrombectomy of right fem-BK popliteal bypass graft, endarterectomy with bovine pericardial patch angioplasty of right BK pop, tibioperoneal trunk, and anterior tibial arteries, redo thrombectomy of fem-fem bypass graft, and right popliteal to proximal anterior tibial bypass graft with right distal calf reversed greater saphenous vein. Pulmonology was consulted for ventilator management status post extensive surgery and large volume fluid resuscitation ( 8 L lactated ringers, 5% Albumin 250ml, 4 units of PRBCs, 1 unit of FFP). Case discussed with family at bedside. Patient has had multiple surgeries on his right lower extremity. Patient has been off Xarelto since last week and stopped smoking in January 2018. Past Med Surg Social Fam HX - Past Medical History Source: old records reviewed, obtained from family Medical history: hyperlipidemia, hypertension, peripheral artery disease, other Additional medical history: former SMOKER Psychiatric history: no psych history, anxiety - Past Surgical History Surgical History: other Additional surgical history: aortogram with bilateral lower extremity runoff . 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 thrombectomy of fem-fem bypass graft, redo endarterectomy of (R) TANK TERMINAL GAUGER, (R) femoral to at the knee popliteal bypass graft with reversed GSV 01/14/18. redo thrombectomy of fem-fem bypass graft, redo right femoral to below knee popliteal bypass graft 03/04/18 - Social History Smoking Status: Former smoker (Quit in January 2018) Smokeless Tobacco Status: No Alcohol use: occasionally, recent Drug use: none Current living situation: Home, With Family - Family History Mother Hx Family Endocrine Disorder: Yes (DM) Father Hx Family Endocrine Disorder: Yes (DM) Medications and Allergies Chlorthalidone 25 mg PO DAILY 02/08/17 [History] hydrOXYzine HCl [Hydroxyzine HCl] 25 mg PO HS PRN 02/08/17 [History] Lisinopril [Zestril] 20 mg PO DAILY 01/14/18 [History] Atenolol [Tenormin] 100 mg PO DAILY 03/04/18 [History] Atorvastatin Calcium [Lipitor] 20 mg PO HS 03/04/18 [History] Rivaroxaban [Xarelto] 20 mg PO 07/23/18 [History] 3 Allergy/AdvReac Type Severity Reaction Status Date / Time aspirin Allergy Itching Verified 03/04/18 09:10 ROS unobtainable: due to endotracheal tube All Systems: The remainder of the systems were reviewed and are negative Physical Examination Vital Signs: Vital Signs, Last 4 Hours Temp Pulse Resp BP Pulse Ox 07/23/18 02:50 97.8 F 96 17 94/69 100 07/23/18 02:43 97 F L 97 21 97/71 100 07/23/18 02:00 97 21 97/71 100 07/23/18 01:49 96.3 F L 102 24 120/70 100 General appearance: no acute distress (intubated, responds to voice) Eyes: nonicteric ENT: oropharynx dry (intubated) Neck: supple, no JVD Effort: mildly labored (intubated) Auscultation: bilateral: rales (rales bilaterally) Cardiovascular: regular rate and rhythm Gastrointestinal: normoactive bowel sounds, soft, non-tender, non-distended Integumentary: other (bandages in place RLE, right leg pale, cool, no palpable pulses) Extremities: no edema, pulses normal (LLE, RLE no palpable pulses), cool Gait: normal posture non-focal exam (lightly sedated, responds to voice, blinks eyes) Ventilator Settings Ventilator Settings: Ventilator Settings, Last 8 Hours Ventilator Tidal Volume 500 Setting Ventilator Tidal Volume 500 Setting Ventilator Tidal Volume 500 Setting Ventilator Tidal Volume 500 Setting Ventilator Respiratory Rate 14 Setting Ventilator Respiratory Rate 14 Setting Ventilator Respiratory Rate 14 Setting Ventilator Respiratory Rate 14 Setting Actual Respiratory Rate 21 Actual Respiratory Rate 21 Actual Respiratory Rate 21 Actual Respiratory Rate 21 Positive End Expiratory 5 Pressure Positive End Expiratory 5 Pressure Positive End Expiratory 5 Pressure Positive End Expiratory 5 Pressure Peak Inspiratory Airway 20 Pressure Peak Inspiratory Airway 20 Pressure Peak Inspiratory Airway 20 Pressure Peak Inspiratory Airway 20 Pressure Results - Laboratory Findings CBC and BMP: 07/23/18 02:15 07/23/18 02:36 PT/INR, D-dimer PT 12.3 Seconds (9.4-12.1) H 07/23/18 02:15 Abnormal lab findings: Abnormal lab results WBC 14.0 K/mcL (4.3-11.1) H 07/23/18 02:15 RBC 3.33 M/mcL (4.19-5.50) L 07/23/18 02:15 Hgb 10.5 g/dL (12.9-16.9) L 07/23/18 02:15 Hct 31.3 % (37.5-50.1) L 07/23/18 02:15 RDW 15.0 % (11.5-14.5) H 07/23/18 02:15 Plt Count 114 K/mcL (140-400) L 07/23/18 02:15 PT 12.3 Seconds (9.4-12.1) H 07/23/18 02:15 Heparin Anti-Xa, Unfract 0.25 IU/mL (0.30-0.70) L 07/23/18 02:15 Chloride 114 mEq/L (98-107) H 07/22/18 22:58 Carbon Dioxide 22 mEq/L (23-29) L 07/22/18 22:58 Creatinine 0.63 mg/dL (0.70-1.30) L 07/22/18 22:58 Glucose 167 mg/dL (70-105) H 07/22/18 22:58 Calcium 7.7 mg/dL (8.6-10.3) L 07/22/18 22:58 Serum Total Protein 5.5 g/dL (6.4-8.9) L 07/22/18 18:26 Albumin 3.1 g/dL (3.5-5.7) L 07/22/18 18:26 - Diagnostic Findings Chest x-ray: report reviewed, image reviewed Additional studies: ITS Impressions Chest X-Ray 07/23/18 03:23 IMPRESSION: Appropriate endotracheal and esophagogastric tube positioning. Pulmonary hypoexpansion with basilar atelectasis. D/ / Fredy Garrett / Fredy Garrett Interpreting Provider: Fredy Garrett - Clinical Findings Intake & Output: Intake & Output 07/22/18 07/22/18 07/23/18 15:59 23:59 07:59 Intake Total 0 / 0 Output Total 6600 / 6600 Balance -6600 / -6600 Weight 88.451 kg Consult Discharge Plan - Plan Referrals: Jacob García MD [Primary Care Provider] - 07/28/18 1:30 pm Darvin Garg MD [Partnered Physician] - 08/06/18 3:15 pm <Karon Lentz - Last Filed: 07/23/18 09:38> Date of Encounter: 07/23/18 All Systems: The remainder of the systems were reviewed and are negative Physical Examination Vital Signs: Vital Signs, Last 4 Hours Temp Pulse Resp BP Pulse Ox 07/23/18 09:00 86 14 110/55 100 07/23/18 08:50 97 16 109/61 100 07/23/18 08:00 98.8 F 84 07/23/18 07:00 101 20 96/62 99 07/23/18 06:00 87 17 91/56 100 07/23/18 05:42 23 84/53 99 Ventilator Settings Ventilator Settings: Ventilator Settings, Last 8 Hours Ventilator Tidal Volume 500 Setting Ventilator Tidal Volume 500 Setting Ventilator Tidal Volume 500 Setting Ventilator Tidal Volume 500 Setting Ventilator Tidal Volume 500 Setting Ventilator Tidal Volume 500 Setting Ventilator Tidal Volume 500 Setting Ventilator Tidal Volume 500 Setting Ventilator Tidal Volume 500 Setting Ventilator Tidal Volume 500 Setting Ventilator Tidal Volume 500 Setting Ventilator Tidal Volume 500 Setting Ventilator Tidal Volume 500 Setting Ventilator Respiratory Rate 14 Setting Ventilator Respiratory Rate 14 Setting Ventilator Respiratory Rate 14 Setting Ventilator Respiratory Rate 14 Setting Ventilator Respiratory Rate 14 Setting Ventilator Respiratory Rate 14 Setting Ventilator Respiratory Rate 14 Setting Ventilator Respiratory Rate 14 Setting Ventilator Respiratory Rate 14 Setting Ventilator Respiratory Rate 14 Setting Ventilator Respiratory Rate 14 Setting Ventilator Respiratory Rate 14 Setting Ventilator Respiratory Rate 14 Setting Actual Respiratory Rate 21 Actual Respiratory Rate 21 Actual Respiratory Rate 23 Actual Respiratory Rate 21 Actual Respiratory Rate 21 Actual Respiratory Rate 15 Actual Respiratory Rate 21 Actual Respiratory Rate 21 Actual Respiratory Rate 21 Actual Respiratory Rate 21 Actual Respiratory Rate 20 Actual Respiratory Rate 21 Positive End Expiratory 5 Pressure Positive End Expiratory 5 Pressure Positive End Expiratory 5 Pressure Positive End Expiratory 5 Pressure Positive End Expiratory 5 Pressure Positive End Expiratory 5 Pressure Positive End Expiratory 5 Pressure Positive End Expiratory 5 Pressure Positive End Expiratory 5 Pressure Positive End Expiratory 5 Pressure Positive End Expiratory 5 Pressure Positive End Expiratory 5 Pressure Positive End Expiratory 5 Pressure Peak Inspiratory Airway 20 Pressure Peak Inspiratory Airway 20 Pressure Peak Inspiratory Airway 11 Pressure Peak Inspiratory Airway 20 Pressure Peak Inspiratory Airway 20 Pressure Peak Inspiratory Airway 25 Pressure Peak Inspiratory Airway 20 Pressure Peak Inspiratory Airway 20 Pressure Peak Inspiratory Airway 20 Pressure Peak Inspiratory Airway 20 Pressure Peak Inspiratory Airway 26 Pressure Peak Inspiratory Airway 20 Pressure Results - Laboratory Findings CBC and BMP: 07/23/18 02:15 07/23/18 02:36 ABG ABG pH 7.37 pH Units (7.32-7.45) 07/23/18 04:11 ABG pCO2 43 mmHg (35-45) 07/23/18 04:11 ABG pO2 510 mmHg (85-104) H 07/23/18 04:11 ABG O2 Saturation 100 % (95-98) H 07/23/18 04:11 PT/INR, D-dimer PT 12.3 Seconds (9.4-12.1) H 07/23/18 02:15 Abnormal lab findings: Abnormal lab results WBC 14.0 K/mcL (4.3-11.1) H 07/23/18 02:15 RBC 3.33 M/mcL (4.19-5.50) L 07/23/18 02:15 Hgb 10.5 g/dL (12.9-16.9) L 07/23/18 02:15 Hct 31.3 % (37.5-50.1) L 07/23/18 02:15 RDW 15.0 % (11.5-14.5) H 07/23/18 02:15 Plt Count 114 K/mcL (140-400) L 07/23/18 02:15 PT 12.3 Seconds (9.4-12.1) H 07/23/18 02:15 APTT 37.2 Seconds (26.0-36.0) H 07/23/18 02:15 Heparin Anti-Xa, Unfract 0.29 IU/mL (0.30-0.70) L 07/23/18 06:20 ABG pO2 510 mmHg (85-104) H 07/23/18 04:11 ABG O2 Saturation 100 % (95-98) H 07/23/18 04:11 Chloride 114 mEq/L (98-107) H 07/23/18 02:36 Carbon Dioxide 19 mEq/L (23-29) L 07/23/18 02:36 Glucose 162 mg/dL (70-105) H 07/23/18 02:36 Calcium 7.4 mg/dL (8.6-10.3) L 07/23/18 02:36 Magnesium 1.3 mg/dL (1.6-2.6) L 07/23/18 02:36 Serum Total Protein 5.5 g/dL (6.4-8.9) L 07/22/18 18:26 Albumin 3.1 g/dL (3.5-5.7) L 07/22/18 18:26 - Clinical Findings Intake & Output: Intake & Output 07/22/18 07/23/18 07/23/18 23:59 07:59 15:59 Intake Total 180 / 180 100 / 100 Output Total 7600 / 7600 1150 / 1150 Balance -7420 / -7420 -1050 / -1050 Weight 90 kg - Attending Attestation I saw and evaluated this patient and my medical decision-making was reviewed with the Resident Physician. I agree with the documented findings, disposition and treatment plan as described except to the extent set forth below. We independently had [id number] contact with the patient I spent 33 minutes of Critical Care time with this patient. It involved decision making of high complexity to assess, manipulate, and support vital organ system failure and/or to prevent further life threatening deterioration of the patient's condition. The time involved in the performance of separately reportable procedures was not counted toward critical care time. Patient seen and examined at bedside Labs, radiology, chart personally reviewed. Management was reviewed during multidisciplinary critical care rounds. ASH COLLECTOR: Patient is conscious oriented following commands patient was intubated we will reassess after he is extubated. Pulm: Patient has minimal VQ mismatch acceptable oxygenation and ventilation. Patient was transitioned to spontaneous breathing trial PARAMETERS where within adequate limits patient was extubated to nasal cannula. Cards: Patient is hemodynamically stable patient has history of coronary artery disease will closely follow for signs of acute coronary syndrome as people after peripheral vascular surgery is high risk for postoperative MN. FEN-GI: Advance diet as tolerated according to surgery. Renal: Labs and output are reviewed ID: No active ID issues Heme/Onc: Thromboprophylaxis according to surgeon. Endo: Glucose Monitored Integ/MSK: Skin Care per routine ICU Nursing Protocol to prevent ulcers. Lines: All lines examined without evidence of infection : Dispo: To remain in the ICU today CODE: Full Code
[2018-07-23] MEDS ORDERED: *HR* Promethazine 25 MG/ML VIAL IVP PRN (03:23)
[2018-07-23] MEDS ORDERED: OXYCODONE Oral CONC 10 MG/0.5 ML ORAL.SYG SL PRN (03:23)
[2018-07-23] MEDS: Artificial Tears SOLN 15 ML BOTTLE BOTH EYES SCH ×6 (03:40→23:54)
[2018-07-23] MEDS: Heparin 25,000 UNIT/500 ML D5W 25,000 UNIT/500 ML BAG IVC SCH ×2 (03:40→23:42)
[2018-07-23] MEDS: FentaNYL (PF) 1,000 MCG in 0.9 % Sodium Chloride 80 ML IVC SCH ×2 (03:40→23:55)
[2018-07-23 03:45] LABS: BUN/Creatinine Ratio 13 (6-26); Blood Urea Nitrogen 9 mg/dL (6-20); Calcium 7.4 mg/dL (8.6-10.3); Carbon Dioxide 19 mEq/L (23-29); Chloride 114 mEq/L (98-107); Creatine Kinase 198 Units/L (30-223); Glucose 162 mg/dL (70-105); Osmolality,Calculated 296 (280-300); Potassium 4.1 mEq/L (3.5-5.1); Sodium 142 mEq/L (136-145); eGFR For Non-African Americans > 60 (> 60)
[2018-07-23 03:53] LABS: Activated Partial Thrombo Time 37.2 Seconds (26.0-36.0)
--- NOTE | 2018-07-23 03:54 | Anesthesia Evaluation Post Op ---
Date of Encounter: 07/23/18 Time of Encounter: 03:53 - Vital Signs Vital Signs: Vital Signs/O2 Sat, Most Current Temp Pulse Resp BP Pulse Ox 97.8 F 87 21 100/57 100 07/23/18 03:23 07/23/18 03:23 07/23/18 03:23 07/23/18 03:07/23/18 03:23 - Lungs Lungs: Clear Ascult./Percussion - Airway Airway: Intubated - Cardiovascular Regular Rate - Mental Status Mental Status: Sedated - Nausea Vomiting Nausea Vomiting: Not Present - Hydration Hydration: NPO, Davidson catheter - Discharge PostOp Status: Transfer Patient to floor Attestation: further care per ICU team
[2018-07-23] MEDS ORDERED: Artificial Tears SOLN 15 ML BOTTLE BOTH EYES SCH (04:00)
[2018-07-23 04:16] LABS: ABG Base Excess -1 mEq/L (-2 to 3); ABG HCO3 25 mEq/L (21-27); ABG Oxygen Saturation 100 % (95-98); ABG PCO2 43 mmHg (35-45); ABG PH 7.37 pH Units (7.32-7.45); ABG PO2 510 mmHg (85-104); ABG TCO2 26 mEq/L (20-26); Blood Gas Modality VC; Blood Gas PEEP 5 cm H2O; Blood Gas Respiration Rate 14; Blood Gas VT 500 cc
[2018-07-23] MEDS: *HR* Metoprolol 5 MG/5 ML VIAL IVP SCH ×4 (04:17→23:55)
[2018-07-23] MEDS ORDERED: hydrOXYzine pamoate 25 MG CAPSULE PO PRN (04:25)
[2018-07-23] MEDS: Magnesium Oxide 400 MG TABLET GTUBE SCH ×2 (04:39→08:35)
[2018-07-23] MEDS: Pantoprazole 40 MG VIAL IVP SCH (05:13)
[2018-07-23] MEDS ORDERED: Famotidine 20 MG/2 ML VIAL IVP SCH (06:00)
[2018-07-23] MEDS ORDERED: Pantoprazole 40 MG VIAL IVP SCH (06:30)
[2018-07-23] MEDS: OXYCODONE Oral CONC 10 MG/0.5 ML ORAL.SYG SL PRN ×2 (08:59→13:10)
[2018-07-23] MEDS: Chlorhexidine Rinse 15 ML MOUTHWASH MM SCH ×2 (09:00→19:58)
[2018-07-23] MEDS ORDERED: Chlorhexidine Rinse 15 ML MOUTHWASH MM SCH (09:00)
[2018-07-23 10:18] LABS: Hematocrit 25.7 % (37.5-50.1); Hemoglobin 8.6 g/dL (12.9-16.9); Immature Platelets 6.3 % (1.1-6.1); Mean Corpuscular HGB Conc 33.5 g/dL (31.6-35.5); Mean Corpuscular Hemoglobin 30.4 pg (28.0-33.3); Mean Corpuscular Volume 90.8 fL (83.0-100.0); Mean Platelet Volume 10.7 fL (9.4-12.4); Red Blood Count 2.83 M/mcL (4.19-5.50); Red Cell Distribution Width 15.4 % (11.5-14.5)
[2018-07-23] MEDS: Ketorolac 30 MG/ML VIAL IVP PRN ×2 (12:13→23:44)
[2018-07-23 16:20] LABS: Hematocrit 24.1 % (37.5-50.1); Hemoglobin 8.1 g/dL (12.9-16.9); Immature Platelets 5.8 % (1.1-6.1); Mean Corpuscular HGB Conc 33.6 g/dL (31.6-35.5); Mean Corpuscular Hemoglobin 30.9 pg (28.0-33.3); Mean Platelet Volume 10.8 fL (9.4-12.4); Red Blood Count 2.62 M/mcL (4.19-5.50); Red Cell Distribution Width 15.7 % (11.5-14.5)
--- NOTE | 2018-07-23 18:17 | Vascular/[facility] Progress Note ---
Date of Encounter: 07/23/18 Time of Encounter: 18:15 - Assessment and plan (1) PAD (peripheral artery disease) Current Visit: Yes Status: Chronic Patient is status post extensive thrombectomy and revision of her right lower extremity ischemia. Patient has had poor result was still no Doppler signal in the right foot though he still has motion and sensation though the sensation is altered. I discussed with the patient and his family again the results of the operation overall prognosis. I explained that the multiple operations over the past few months to years have indicated a deteriorating state of his vascular status. Despite maximum effort he still has not obtained a Doppler signal at the right foot this afternoon. I explained to the family that there are no further surgical options available to us at this time. I recommended that we continue supportive measures including the intravenous heparin. I am also ordered 1 unit of blood because the patient had demonstrated hypotension while he was in the room talking with him with pressure ranging anywhere from 114-79 mmHg systolic. (2) Current use of anticoagulant therapy Current Visit: Yes Status: Acute Continue anticoagulation therapy to promote perfusion of right lower extremity. (3) Anemia due to blood loss, acute Current Visit: Yes Status: Acute Patient has acute blood loss secondary to thrombectomy and procedures in the operating room. Hemoglobin is noted to be 8.1 this afternoon. Patient will receive additional unit of blood because of borderline blood pressure. - Subjective Interval history: Patient is postoperative day #0/1 following prolonged and extensive right lower extremity thrombectomy and revascularization. Patient was taken from the operating room intubated due to the large amount of crystalloid and blood loss patient experience. He was able to be extubated early this morning and is remained extubated. The patient notes numbness in his right foot and toes. He is able to move the toes and foot. He does have sensation. In addition the patient was noted to have intermittent hypotension and so he was held in the ICU today for further observation and treatment. Vital Signs, Last 4 Hours Temp Pulse Resp BP Pulse Ox 07/23/18 17:00 92 20 98/51 99 07/23/18 16:00 98.5 F 86 14 110/53 100 07/23/18 15:00 77 12 101/55 99 - Physical Examination General: Present: Conversant, No Apparent Distress HEENT: Present: Atraumatic Neck: Absent: JVD Cardiac: Present: Reg Rate and Rhythm Lungs: Present: Normal Breath Sounds Neuro: Present: Alert and responsive, Motor nerves grossly intact, Other ( Numbness of right foot and toes) Vascular: Present: Color/Temperature (Right foot is pale and cool to touch.), Surgical incisions (Dry dressings cover the right lower extremity surgical incisions), Other (No arterial Doppler signals could be identified at the right foot and ankle on my examination. Venous signals are identified 3.) Abdomen: Present: Soft, Non-tender Skin: Present: No rashes noted on visualized skin Results 07/23/18 16:00 07/23/18 02:36 Lab Results, Last 24 hours 07/22/18 07/22/18 07/22/18 18:26 18:26 22:58 WBC 7.5 10.7 Hgb 11.9 L D 11.4 L Hct 35.6 L 33.5 L Plt Count 217 122 L INR APTT Sodium 142 Potassium 4.3 Chloride 110 H Carbon Dioxide 28 BUN 12 Creatinine 0.69 L Glucose 156 H Calcium 8.3 L Magnesium Total Bilirubin 0.4 AST 16 ALT 16 Alkaline Phosphatase 38 07/22/18 07/23/18 07/23/18 22:58 02:15 02:15 WBC 14.0 H Hgb 10.5 L Hct 31.3 L Plt Count 114 L INR 1.1 APTT 37.2 H Sodium 141 Potassium 4.6 Chloride 114 H Carbon Dioxide 22 L BUN 9 Creatinine 0.63 L Glucose 167 H Calcium 7.7 L Magnesium Total Bilirubin AST ALT Alkaline Phosphatase 07/23/18 07/23/18 07/23/18 02:36 09:55 16:00 WBC 11.2 H 10.7 Hgb 8.6 L D 8.1 L Hct 25.7 L 24.1 L Plt Count 108 L 109 L INR APTT Sodium 142 Potassium 4.1 Chloride 114 H Carbon Dioxide 19 L BUN 9 Creatinine 0.70 Glucose 162 H Calcium 7.4 L Magnesium 1.3 L Total Bilirubin AST ALT Alkaline Phosphatase - Imaging / Other Tests Chest Xray: report reviewed Consult Discharge Plan - Plan Referrals: Jacob García MD [Primary Care Provider] - 07/28/18 1:30 pm Darvin Garg MD [Partnered Physician] - 08/06/18 3:15 pm
[2018-07-23] MEDS ORDERED: 0.9 % Sodium Chloride 1,000 ML ONE (18:42)
[2018-07-23] MEDS: *HR* OxyCODONE/APAP 5/325 TABLET PO PRN ×2 (20:05→23:44)
[2018-07-24] MEDS: Artificial Tears SOLN 15 ML BOTTLE BOTH EYES SCH ×2 (03:07→09:30)
[2018-07-24 03:21] LABS: Basophils % 0.4 %; Eosinophils # 0.2 K/mcL (0.0-0.6); Eosinophils % 1.6 %; Hematocrit 26.6 % (37.5-50.1); Hemoglobin 9.1 g/dL (12.9-16.9); Immature Granulocytes % 0.5 % (0-4); Immature Platelets 4.3 % (1.1-6.1); Lymphocytes # 2.6 K/mcL (0.6-4.6); Lymphocytes % 26.2 %; Mean Corpuscular HGB Conc 34.2 g/dL (31.6-35.5); Mean Corpuscular Hemoglobin 31.4 pg (28.0-33.3); Mean Corpuscular Volume 91.7 fL (83.0-100.0); Mean Platelet Volume 10.4 fL (9.4-12.4); Monocytes # 1.2 K/mcL (0.0-1.3); Neutrophils # 5.8 K/mcL (1.6-8.9); Platelet Count 100 K/mcL (140-400); Red Cell Distribution Width 15.5 % (11.5-14.5); Segmented Neutrophils % 59.3 %
[2018-07-24 03:58] LABS: BUN/Creatinine Ratio 11 (6-26); Blood Urea Nitrogen 8 mg/dL (6-20); Calcium 7.5 mg/dL (8.6-10.3); Carbon Dioxide 30 mEq/L (23-29); Chloride 107 mEq/L (98-107); Glucose 112 mg/dL (70-105); Magnesium 1.8 mg/dL (1.6-2.6); Osmolality,Calculated 289 (280-300); Potassium 3.3 mEq/L (3.5-5.1); Sodium 140 mEq/L (136-145); eGFR For Non-African Americans > 60 (> 60)
[2018-07-24] MEDS: *HR* Metoprolol 5 MG/5 ML VIAL IVP SCH ×3 (04:41→17:34)
[2018-07-24] MEDS: *HR* OxyCODONE/APAP 5/325 TABLET PO PRN ×5 (04:41→21:43)
[2018-07-24] MEDS: Pantoprazole 40 MG VIAL IVP SCH (04:43)
--- NOTE | 2018-07-24 07:45 | Pulmonology Progress Note ---
<DaviKaron guerra S - Last Filed: 07/24/18 14:57> Date of Encounter: 07/24/18 Objective PUL Vital signs: Last Vital Signs Temp 98.9 F 07/24/18 11:30 Pulse 99 07/24/18 14:00 Resp 16 07/24/18 14:00 BP 117/71 07/24/18 14:00 Pulse Ox 93 07/24/18 14:00 Results - Laboratory Findings CBC and BMP: 07/24/18 03:08 07/24/18 03:08 ABG ABG pH 7.37 pH Units (7.32-7.45) 07/23/18 04:11 ABG pCO2 43 mmHg (35-45) 07/23/18 04:11 ABG pO2 510 mmHg (85-104) H 07/23/18 04:11 ABG O2 Saturation 100 % (95-98) H 07/23/18 04:11 PT/INR, D-dimer PT 12.3 Seconds (9.4-12.1) H 07/23/18 02:15 Abnormal lab findings: Abnormal lab results RBC 2.90 M/mcL (4.19-5.50) L 07/24/18 03:08 Hgb 9.1 g/dL (12.9-16.9) L 07/24/18 03:08 Hct 26.6 % (37.5-50.1) L 07/24/18 03:08 RDW 15.5 % (11.5-14.5) H 07/24/18 03:08 Plt Count 100 K/mcL (140-400) L 07/24/18 03:08 PT 12.3 Seconds (9.4-12.1) H 07/23/18 02:15 APTT 37.2 Seconds (26.0-36.0) H 07/23/18 02:15 ABG pO2 510 mmHg (85-104) H 07/23/18 04:11 ABG O2 Saturation 100 % (95-98) H 07/23/18 04:11 Potassium 3.3 mEq/L (3.5-5.1) L 07/24/18 03:08 Carbon Dioxide 30 mEq/L (23-29) H 07/24/18 03:08 Glucose 112 mg/dL (70-105) H 07/24/18 03:08 POC Glucose 132 mg/dL (70-99) H 07/23/18 01:56 Calcium 7.5 mg/dL (8.6-10.3) L 07/24/18 03:08 Serum Total Protein 5.5 g/dL (6.4-8.9) L 07/22/18 18:26 Albumin 3.1 g/dL (3.5-5.7) L 07/22/18 18:26 - Clinical Findings Intake & Output: Intake & Output 07/23/18 07/24/18 07/24/18 23:59 07:59 15:59 Intake Total 1450 / 1450 880 / 880 Output Total 2050 / 0 650 / 650 2350 / 2350 Balance -600 / -600 -650 / -650 -1470 / -1470 Weight 96.4 kg Consult Discharge Plan - Plan Referrals: Jacob García MD [Primary Care Provider] - 07/28/18 1:30 pm Darvin Garg MD [Partnered Physician] - 08/06/18 3:15 pm - Attending Attestation Attending Attestation I saw and evaluated this patient and my medical decision-making was reviewed with the Resident Physician. I agree with the documented findings, disposition and treatment plan as described except to the extent set forth below. We independently had [id number] contact with the patient Patient seen and examined at bedside Labs, radiology, chart personally reviewed. Management was reviewed during multidisciplinary critical care rounds. HYDRAULIC CONTROLS TECHNICIAN: Patient is conscious oriented following commands no active HYDRAULIC CONTROLS TECHNICIAN issues Pulm: Patient has minimal VQ mismatch acceptable oxygenation and ventilation. Patient was transitioned to spontaneous breathing trial PARAMETERS where within adequate limits patient was extubated to nasal cannula. 07/24 Patient is on room air no evidence of V/Q mismatch Cards: Patient is hemodynamically stable patient has history of coronary artery disease will closely follow for signs of acute coronary syndrome as people after peripheral vascular surgery is high risk for postoperative WA. FEN-GI: Advance diet as tolerated according to surgery. Renal: Labs and output are reviewed ID: No active ID issues Heme/Onc: Thromboprophylaxis according to surgeon. Endo: Glucose Monitored Integ/MSK: Skin Care per routine ICU Nursing Protocol to prevent ulcers. Lines: All lines examined without evidence of infection : Dispo: Transfer to Step down , will transfer care to the Hospitalist CODE: Full Code <Fabio Keys - Last Filed: 07/24/18 15:06> Date of Encounter: 07/24/18 Time of Encounter: 06:45 Assessment and Plan (1) PAD (peripheral artery disease) Current Visit: Yes Status: Chronic POD 1 s/p extensive R lower leg vascular surgery including a thrombectomy of right fem-BK popliteal bypass graft, endarterectomy with bovine pericardial patch angioplasty of right BK pop, tibioperoneal trunk, and anterior tibial arteries, redo thrombectomy of fem-fem bypass graft, and right popliteal to proximal anterior tibial bypass graft with right distal calf reversed greater saphenous vein. Home xarelto held prior to surgery, heparin infusion now. No R pedal pulse palpated or found via doppler. R foot/leg warm, pink and without numbness/paresthesias, pain not surgically related. Plan to transfer to today when bed available. Spoke to Dr Hopper about transfer. (2) Anemia due to blood loss, acute Current Visit: Yes Status: Acute Received 8L crystalloids, 250ml 5% albumin, 4 units PRBC, 1 FFP intraop. EBL 2400ml during surgery. Hgb 12 preop, 10.5 post op and 9.8 today. He was minimally hypotensive yesterday and had 1 additional unit PRBC. Hemodynamically stable today. (3) Hypokalemia Current Visit: No Status: Resolved K 3.3 today, will give 40 PO K today. (4) Hypomagnesemia Current Visit: Yes Status: Acute Resolved. Mg 1.8 today (5) DVT prophylaxis Current Visit: Yes Status: Acute Chemical prophylaxis Subjective Principal diagnosis: PAD Interval history: POD 1 after extensive R lower leg vascular surgery. Says he is feeling better today and has no complaints. No R pedal pulse palpated or found via doppler. Extubated yesterday morning without difficulty, on nc now. Received 1 unit blood yesterday, hgb 9.1 today. Objective PUL Vital signs: Last Vital Signs Temp 98.1 F 07/24/18 04:24 Pulse 92 07/24/18 07:00 Resp 12 07/24/18 07:00 BP 124/56 07/24/18 07:00 Pulse Ox 98 07/24/18 07:00 General appearance: no acute distress, alert Eyes: nonicteric ENT: oropharynx moist Auscultation: bilateral: clear Cardiovascular: regular rate and rhythm Gastrointestinal: normoactive bowel sounds, soft, non-tender Extremities: no cyanosis, no edema normal mental status mood appropriate Results - Laboratory Findings CBC and BMP: 07/24/18 03:08 07/24/18 03:08 ABG ABG pH 7.37 pH Units (7.32-7.45) 07/23/18 04:11 ABG pCO2 43 mmHg (35-45) 07/23/18 04:11 ABG pO2 510 mmHg (85-104) H 07/23/18 04:11 ABG O2 Saturation 100 % (95-98) H 07/23/18 04:11 PT/INR, D-dimer PT 12.3 Seconds (9.4-12.1) H 07/23/18 02:15 Abnormal lab findings: Abnormal lab results RBC 2.90 M/mcL (4.19-5.50) L 07/24/18 03:08 Hgb 9.1 g/dL (12.9-16.9) L 07/24/18 03:08 Hct 26.6 % (37.5-50.1) L 07/24/18 03:08 RDW 15.5 % (11.5-14.5) H 07/24/18 03:08 Plt Count 100 K/mcL (140-400) L 07/24/18 03:08 PT 12.3 Seconds (9.4-12.1) H 07/23/18 02:15 APTT 37.2 Seconds (26.0-36.0) H 07/23/18 02:15 ABG pO2 510 mmHg (85-104) H 07/23/18 04:11 ABG O2 Saturation 100 % (95-98) H 07/23/18 04:11 Potassium 3.3 mEq/L (3.5-5.1) L 07/24/18 03:08 Carbon Dioxide 30 mEq/L (23-29) H 07/24/18 03:08 Glucose 112 mg/dL (70-105) H 07/24/18 03:08 POC Glucose 132 mg/dL (70-99) H 07/23/18 01:56 Calcium 7.5 mg/dL (8.6-10.3) L 07/24/18 03:08 Serum Total Protein 5.5 g/dL (6.4-8.9) L 07/22/18 18:26 Albumin 3.1 g/dL (3.5-5.7) L 07/22/18 18:26 - Clinical Findings Intake & Output: Intake & Output 07/23/18 07/23/18 07/24/18 15:59 23:59 07:59 Intake Total 500 / 500 1450 / 1450 Output Total 1875 / 1875 2049 / 2049 650 / 650 Balance -1375 / -1375 -600 / -600 -650 / -650 Weight 96.4 kg
[2018-07-24] MEDS: Chlorhexidine Rinse 15 ML MOUTHWASH MM SCH (09:31)
--- NOTE | 2018-07-24 16:38 | Vascular/[facility] Progress Note ---
Date of Encounter: 07/24/18 Time of Encounter: 15:30 - Assessment and plan (1) PAD (peripheral artery disease) Current Visit: Yes Status: Chronic Patient had an uneventful night. Patient's perfusion is improved to the right lower extremity today with now the finding of a Doppler signal at 2 locations and improved color and temperature to the right foot. We will now advance his physical activity. Heparin will be continued. Patient may be up in chair and ambulate as tolerated. Patient may be transferred to [address] [place] [address] when bed is available. Patient's family was present. I reviewed all issues again with them and the patient. All questions were answered. (2) Current use of anticoagulant therapy Current Visit: Yes Status: Acute Continue anticoagulation therapy to promote perfusion of right lower extremity. (3) Anemia due to blood loss, acute Current Visit: Yes Status: Acute Patient responded appropriately to 1 unit transfusion last night. No signs of ongoing bleeding. - Subjective Interval history: Patient had an uneventful evening. Patient has had some pain in the leg which is controlled with analgesia. He continues to note numbness of the right foot and toes. He is able to continue to move the foot and toes. He did receive 1 unit of blood yesterday with an appropriate response in his hemoglobin. His blood pressure has been stable overnight and today. He continues to have good urinary output. Vital Signs, Last 4 Hours Temp Pulse Resp BP Pulse Ox 07/24/18 16:00 98 16 130/77 94 07/24/18 15:54 99.1 F 07/24/18 14:00 99 16 117/71 93 - Physical Examination General: Present: Conversant, No Apparent Distress HEENT: Present: Atraumatic Neck: Absent: JVD Cardiac: Present: Reg Rate and Rhythm Lungs: Present: Normal Breath Sounds Neuro: Present: Alert and responsive, Motor nerves grossly intact, Other ( Numbness of right foot and toes) Vascular: Present: Color/Temperature (Improved color and temperature of right foot. It is still not as warm as the left foot but it is improved from yesterday.), Surgical incisions (The surgical incisions were inspected today the dressings removed. They are intact without signs of hematoma or bleeding.), Other (Patient now has biphasic Doppler signal over the dorsalis pedis artery and on the distal dorsum of the right foot. He has a weak monophasic peroneal signal. I do not detect a posterior tibial signal.) Abdomen: Present: Soft, Non-tender Skin: Present: No rashes noted on visualized skin Results 07/24/18 03:08 07/24/18 03:08 Lab Results, Last 24 hours 07/24/18 07/24/18 03:08 03:08 WBC 9.8 Hgb 9.1 L Hct 26.6 L Plt Count 100 L Sodium 140 Potassium 3.3 L Chloride 107 Carbon Dioxide 30 H BUN 8 Creatinine 0.74 Glucose 112 H Calcium 7.5 L Magnesium 1.8 Consult Discharge Plan - Plan Referrals: Jacob García MD [Primary Care Provider] - 07/28/18 1:30 pm Darvin Garg MD [Partnered Physician] - 08/06/18 3:15 pm
[2018-07-24] MEDS: Ketorolac 30 MG/ML VIAL IVP PRN (20:00)
[2018-07-24] MEDS: Heparin 25,000 UNIT/500 ML D5W 25,000 UNIT/500 ML BAG IVC SCH (20:02)
[2018-07-25] MEDS: *HR* Metoprolol 5 MG/5 ML VIAL IVP SCH ×4 (02:54→18:42)
[2018-07-25] MEDS: FentaNYL (PF) 1,000 MCG in 0.9 % Sodium Chloride 80 ML IVC SCH (02:55)
[2018-07-25 04:06] LABS: Basophils % 0.3 %; Eosinophils # 0.3 K/mcL (0.0-0.6); Eosinophils % 2.7 %; Hematocrit 28.4 % (37.5-50.1); Hemoglobin 9.3 g/dL (12.9-16.9); Immature Granulocytes % 0.4 % (0-4); Lymphocytes # 1.8 K/mcL (0.6-4.6); Lymphocytes % 19.1 %; Mean Corpuscular HGB Conc 32.7 g/dL (31.6-35.5); Mean Corpuscular Hemoglobin 31.3 pg (28.0-33.3); Mean Corpuscular Volume 95.6 fL (83.0-100.0); Mean Platelet Volume 10.8 fL (9.4-12.4); Monocytes % 10.2 %; Neutrophils # 6.3 K/mcL (1.6-8.9); Platelet Count 125 K/mcL (140-400); Red Blood Count 2.97 M/mcL (4.19-5.50); Red Cell Distribution Width 14.9 % (11.5-14.5); Segmented Neutrophils % 67.3 %
[2018-07-25] MEDS: Pantoprazole 40 MG VIAL IVP SCH (04:15)
[2018-07-25] MEDS: *HR* OxyCODONE/APAP 5/325 TABLET PO PRN ×2 (04:15→08:22)
[2018-07-25 04:28] LABS: BUN/Creatinine Ratio 9 (6-26); Blood Urea Nitrogen 7 mg/dL (6-20); Calcium 8.2 mg/dL (8.6-10.3); Carbon Dioxide 30 mEq/L (23-29); Chloride 103 mEq/L (98-107); Glucose 121 mg/dL (70-105); Magnesium 1.9 mg/dL (1.6-2.6); Osmolality,Calculated 287 (280-300); Phosphorous 3.1 mg/dL (2.7-4.5); Potassium 3.7 mEq/L (3.5-5.1); Sodium 139 mEq/L (136-145); eGFR For Non-African Americans > 60 (> 60)
[2018-07-25] MEDS ORDERED: *HR* Heparin 5,000 UNIT/ML VIAL IVP PRN ×2 (08:47)
[2018-07-25] MEDS ORDERED: Heparin 25,000 UNIT/500 ML D5W 25,000 UNIT/500 ML BAG IVC SCH (08:47)
[2018-07-25] MEDS ORDERED: Acetaminophen 325 MG TABLET PO PRN (08:47)
[2018-07-25] MEDS ORDERED: Ketorolac 30 MG/ML VIAL IVP PRN (08:47)
[2018-07-25] MEDS ORDERED: Naloxone 0.4 MG/ML INJ IVP PRN (08:47)
[2018-07-25] MEDS ORDERED: *HR* Promethazine 25 MG/ML VIAL IVP PRN (08:47)
[2018-07-25] MEDS ORDERED: *HR* OxyCODONE/APAP 5/325 TABLET PO PRN (08:47)
[2018-07-25] MEDS ORDERED: Ondansetron 4 MG/2 ML VIAL IVP PRN (08:47)
[2018-07-25] MEDS ORDERED: hydrOXYzine pamoate 25 MG CAPSULE PO PRN (08:47)
--- NOTE | 2018-07-25 14:38 | Vascular/[facility] Progress Note ---
Date of Encounter: 07/25/18 Time of Encounter: 12:00 - Assessment and plan (1) PAD (peripheral artery disease) Current Visit: Yes Status: Chronic Right foot continues to improve. Doppler signals remained present. Color and temperature improved. Awaiting patient to be ambulated and be transferred to [address] [place] [address]. Continue IV heparin for now. Transition to Xarleto in near future. Patient will be discharged home once his ambulation status is clarified. (2) Current use of anticoagulant therapy Current Visit: Yes Status: Acute Continue anticoagulation therapy to promote perfusion of right lower extremity. (3) Anemia due to blood loss, acute Current Visit: Yes Status: Acute Patient's hemoglobin remained stable. - Subjective Interval history: Patient has had an uneventful night. Patient has no new complaints. Patient still has some numbness in his right foot. He has increased range of motion. He has been up in a chair last night and again today. He has not yet ambulated. He is still awaiting his transfer to [address] [place] [address]. Vital Signs, Last 4 Hours Temp Pulse Resp BP Pulse Ox 07/25/18 13:57 99.1 F 91 18 102/79 99 07/25/18 11:48 98.4 F 76 18 122/87 95 07/25/18 11:46 76 - Physical Examination General: Present: Conversant, No Apparent Distress HEENT: Present: Atraumatic Neck: Absent: JVD Cardiac: Present: Reg Rate and Rhythm Lungs: Present: Normal Breath Sounds Neuro: Present: Alert and responsive, Motor nerves grossly intact, Other (Right forefoot and toe numbness). Absent: Sensory nerves grossly intact Vascular: Present: Color/Temperature (Color and temperature of right foot continues to improve. Patient has approximately 3-4 second capillary refill. Doppler signals are identified over the dorsalis pedis and peroneal artery at the ankle. No arterial signal is identified at the posterior tibial artery.) Abdomen: Present: Soft, Non-tender Skin: Present: No rashes noted on visualized skin Results 07/25/18 03:28 07/25/18 03:28 Lab Results, Last 24 hours 07/25/18 07/25/18 03:28 03:28 WBC 9.4 Hgb 9.3 L Hct 28.4 L Plt Count 125 L Sodium 139 Potassium 3.7 Chloride 103 Carbon Dioxide 30 H BUN 7 Creatinine 0.78 Glucose 121 H Calcium 8.2 L Magnesium 1.9 Consult Discharge Plan - Plan Referrals: Jacob García MD [Primary Care Provider] - 08/04/18 1:30 pm Darvin Garg MD [Partnered Physician] - 08/06/18 3:15 pm
[2018-07-25 15:21] VITALS: BP 136/94
--- NOTE | 2018-07-25 17:46 | Event Note ---
Date of Encounter: 07/25/18 Time of Encounter: 17:45 Patient has been transferred from the ICU to [address] [place] [address]. Patient was seen by physical therapy. Patient was also ambulated by his nurse. Patient was able to ambulate the length of the hallway. The patient was comfortable and did not need assistance. Patient feels comfortable and confident that he can ambulate at home. Therefore we will discharge the patient today. Patient will resume Xarleto starting this afternoon.
--- NOTE | 2018-07-25 17:48 | Discharge Summary ---
Orders not resulted at time of discharge: Pending orders 07/16/18 09:57 PLASMA [BBK] Routine Red Blood Cells [BBK] Routine Date of Encounter: 07/25/18 Time of Encounter: 17:46 - Discharge Diagnosis (1) PAD (peripheral artery disease) Priority: Primary Status: Chronic (2) Current use of anticoagulant therapy Priority: Secondary Status: Acute (3) Anemia due to blood loss, acute Priority: Secondary Status: Acute (4) HTN (hypertension) Priority: Secondary Status: Chronic Comments: Patient has a history of chronic hypertension Qualifiers: Hypertension type: essential hypertension Qualified Code(s): I10 - Essential (primary) hypertension (5) HLD (hyperlipidemia) Priority: Secondary Status: Chronic Comments: Patient has a history of hyperlipidemia Qualifiers: Hyperlipidemia type: unspecified Qualified Code(s): E78.5 - Hyperlipidemia , unspecified - Hospital Course Hospital course: Mr. Velasquez is a 53 year old male With severe peripheral vascular occlusive disease. He originally had presented in the past with right iliac artery occlusion. He had gone on to have a left to right femoral-femoral bypass graft. This had thrombosed and was thrombectomized. He then went on to have a femoral to [id number] popliteal artery bypass graft with vein. This then thrombosed. He then had a right femoral to below the knee popliteal artery bypass graft. This then thrombosed approximately 1 month ago by history. He came back to the hospital in an attempt to try to revascularize the leg yet again. He underwent a very extensive and prolonged operation with multiple interventions in an attempt to revascularize the right leg. He was found to have unexpectedly severe distal tibial disease that was not demonstrated on his preoperative CT angiogram. This led to the complexity of the operation. Postoperatively because of the amount of intravenous fluid and duration of surgery and anesthesia he was left intubated and was taken to the intensive care unit. He was able to be extubated a few hours later early in the morning. He had mild hypotension that required an additional unit of blood as well as intravenous fluid. The patient was managed in the intensive care unit. He was transferred to [address] [place] [address] on the day of discharge. He was seen by physical therapy and was ambulating in the hallway. Home physical therapy was suggested. However, the patient was ambulated again by the staff nurse and the patient did very well on his own. It is unlikely the patient will require home physical therapy. The patient will resume his chronic Xarleto therapy in an attempt to promote patency of the lower extremity vessels. - Time Spent with Patient Total time spent providing and/or coordinating discharge services: - Discharge Medications Prescriptions: OxyCODONE/APAP 5/325 [Percocet 5/325 MG] 1 each PO Q6HR PRN 7 Days #20 tablet PRN Reason: Pain Home Medications: Chlorthalidone 25 mg PO DAILY 02/08/17 [History] hydrOXYzine HCl [Hydroxyzine HCl] 25 mg PO HS PRN 02/08/17 [History] Lisinopril [Zestril] 20 mg PO DAILY 01/14/18 [History] Atenolol [Tenormin] 100 mg PO DAILY 03/04/18 [History] Atorvastatin Calcium [Lipitor] 20 mg PO HS 03/04/18 [History] Rivaroxaban [Xarelto] 20 mg PO DAILY 07/23/18 [History] OxyCODONE/APAP 5/325 [Percocet 5/325 MG] 1 each PO Q6HR PRN 7 Days #20 tablet [Rx] Allergies/Adverse Reactions: 3 Allergy/AdvReac Type Severity Reaction Status Date / Time aspirin Allergy Itching Verified 03/04/18 09:10 Date of admission: 07/23/18 02:22 Primary care physician: Jacob García MD Consults: 07/23/18 02:21 Consult to Pulmonology [CONS] Routine Consulting Provider: Pulhoward Guzman & Teodoro Chatman Reason for Consult: Vent management Time Notified: 02:30 Call Completed: Yes 07/24/18 10:44 Consult to Physical Therapy [CONS] Routine Comment: Evaluate, develop and implement POC Reason for Consult: s/p extensive vascular surgery R lower leg 2 days ago Does patient have active BEDREST order?: No Is patient medically & hemodynamically stable?: Yes Procedure(s) Performed: Right femoral-popliteal bypass graft thrombectomy, right below the knee popliteal and tibial peroneal trunk and tibial artery endarterectomy with bovine pericardial patch angioplasty, thrombectomy of left to right femoral- femoral bypass graft, and jump graft from distal aspect of femoral-popliteal bypass graft to proximal anterior tibial artery with reverse greater saphenous vein. Discharging clinician: Darvin Garg Anticipated date of discharge: 07/25/18 Exam Vital Signs, Last 4 Hours Temp Pulse Resp BP Pulse Ox 07/25/18 17:22 108 18 98 07/25/18 16:00 105 07/25/18 15:20 100 18 136/94 100 07/25/18 13:57 99.1 F 91 18 102/79 99 General: Present: Conversant, No Apparent Distress HEENT: Present: Atraumatic Neck: Absent: JVD Neuro: Present: Alert and responsive, Other (Mild right toe and forefoot numbness/paresthesias) Abdomen: Present: Soft, Non-tender Vascular: Present: Normal capillary refill (On the left lower extremity), Capillary refill delayed (Delayed on the right foot), Color/Temperature (The color of the feet are nearly identical. The right foot is mildly cooler than the left.), Surgical incisions (Right lower extremity surgical incisions are clean and dry.), Other (Patient has Doppler signal over the dorsalis pedis and peroneal artery at the right ankle. No Doppler signal was identified at the posterior tibial artery.) Skin: Present: No rashes noted on visualized skin - Patient Status Disposition: Home, Self-Care Condition: Good Functional capacity at discharge: independent ambulation Overall status at discharge: patient is progressing back to baseline - Discharge Instructions Follow Up With: Jacob García MD [Primary Care Provider] - 08/04/18 1:30 pm Darvin Garg MD [Partnered Physician] - 08/06/18 3:15 pm Additional Instructions: Keep right lower extremity surgical incisions dry for a total of 5 days following surgery then may bathe. Using incentive spinal after 10 times an hour while awake for the next 2 weeks then discard incentive spirometer. Resume usual home medications including Xarleto. Encourage ambulation multiple times a day. No lifting greater than 10 pounds. No manual labor. No automobile driving. May seek outpatient physical therapy for ambulation assistance as needed- prescription provided to patient upon discharge. - Diet and Activity Activity: increase activity as tolerated Diet: low fat, low cholesterol
[2018-07-25] MEDS ORDERED: *HR* Rivaroxaban 10 MG TABLET PO ONE (18:00)
[2018-07-26] MEDS ORDERED: Pantoprazole 40 MG VIAL IVP SCH (06:30)
--- NOTE | 2018-07-26 08:35 | Internal Med Progress Note ---
Hospitalist Progress Note - Encounter Date of Encounter: 07/25/18 Time of Encounter: 13:00 - Subjective Interval History: SUBJECTIVE: The patient feels good. Denies chest pain, dyspnea, coughing and wheezing. Denies abdominal pain, nausea and vomiting. He makes fair amounts of urine. His right lower extremity pain is under fair control; taking when necessary Toradol and when necessary Percocet. He is on IV heparin drip. OBJECTIVE: Skin: Free of rash and discoloration. ENMT: Oral/pharyngeal mucosa is normal in appearance. Eyes: Sclera is white. There is no discharge from eyes. Respiratory: Normal breath sounds; no crackles or wheezes. CV: Heart is regular; no gallop or murmur. His lower extremities are of good color/temperature GI: Abdomen is soft and not tender. There is no palpable mass or visceromegaly. Neuro: There is no focal deficits. ASSESSMENT AND PLAN: This patient suffers from occlusive peripheral arterial disease. He had multiple vascular procedures on 07/22/18. He was on the ventilator for a short period of time. He is on IV heparin. He gets when necessary Toradol and when necessary Percocet. Hypertension. Under control. We will continue chlorthalidone. He is on intravenous metoprolol instead of his previously used by mouth atenolol. Hyperlipidemia. He is on Lipitor. - Exam Vitals: Temp Pulse Resp BP Pulse Ox 99.1 F 108 18 136/94 98 07/25/18 13:57 07/25/18 17:22 07/25/18 17:22 07/25/18 15:20 07/25/18 17:22 Exam: xx - Assessment and Plan (1) PAD (peripheral artery disease) Status: Chronic (2) HTN (hypertension) Status: Chronic (3) HLD (hyperlipidemia) Status: Chronic (4) DVT prophylaxis Status: Acute (5) Current use of anticoagulant therapy Status: Acute (6) Anemia due to blood loss, acute Status: Acute (7) Endotracheally intubated Status: Acute (8) Hypomagnesemia Status: Acute - Time Spent with Patient Total time spent is greater than 50% in coordination of care (as documented) at patient's floor/unit and/or counseling patient: 25 - 35 minutes Plan of Care Discussed with: patient Internal Medicine: Result - Labs CBC & Chem 7: 07/25/18 03:28 07/25/18 03:28 - ABG Interpretation ABG results: ABG ABG pH 7.37 pH Units (7.32-7.45) 07/23/18 04:11 ABG pCO2 43 mmHg (35-45) 07/23/18 04:11 ABG pO2 510 mmHg (85-104) H 07/23/18 04:11 ABG O2 Saturation 100 % (95-98) H 07/23/18 04:11 PT/INR, D-dimer PT 12.3 Seconds (9.4-12.1) H 07/23/18 02:15 Consult Discharge Plan - Plan Instructions: Femoropopliteal Bypass (DC), Peripheral Vascular Disorders (DC) Additional Instructions: Keep right lower extremity surgical incisions dry for a total of 5 days following surgery then may bathe. Using incentive spinal after 10 times an hour while awake for the next 2 weeks then discard incentive spirometer. Resume usual home medications including Xarleto. Encourage ambulation multiple times a day. No lifting greater than 10 pounds. No manual labor. No automobile driving. May seek outpatient physical therapy for ambulation assistance as needed- prescription provided to patient upon discharge. Referrals: Jacob García MD [Primary Care Provider] - 08/04/18 1:30 pm Darvin Garg MD [Partnered Physician] - 08/06/18 3:15 pm Prescriptions: OxyCODONE/APAP 5/325 [Percocet 5/325 MG] 1 each PO Q6HR PRN 7 Days #20 tablet PRN Reason: Pain (2) HTN (hypertension) Qualifiers: Hypertension type: essential hypertension Qualified Code(s): I10 - Essential (primary) hypertension (3) HLD (hyperlipidemia) Qualifiers: Hyperlipidemia type: unspecified Qualified Code(s): E78.5 - Hyperlipidemia, unspecified
== END 2018-07-25 19:28 | disposition home or self-care (01) | DRG 253 ==
LOC: SAMDAY 09:59 → ICNU 07-23 02:22 → 2NNU 07-25 14:00
PROVIDERS: ADMIT Surgery Vascular Surgery; ATTEND Surgery Vascular Surgery

== ENCOUNTER 2018-09-04 14:06 | Inpatient (IN) ==
[2018-09-04] MEDS ORDERED: Albuterol 2.5 MG/3 ML NEBULIZER IH ONE ×2 (14:25→20:24)
[2018-09-04] MEDS ORDERED: CeFAZolin Syr 2,000MG/20 ML 2,000 MG/20 ML SYRINGE IVPB ONE (14:25)
[2018-09-04] MEDS ORDERED: Ringers Solution, Lactated 1,000 ML IVC SCH ×2 (14:30→20:30)
--- NOTE | 2018-09-04 15:14 | Anesthesia Evaluation PreOp ---
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, R-SFA balloon angioplasty, L-R Fem- Fem Bypass 02/2017, Throbectomy of Fem-Fem/A-Zim-Fkbycohza Bypass w/reversed GSV 01/2018, Redo Fem-Fem thrombectomy 26830, Redo Thrombectomy [id number] Bypass 07/2018) Alcohol Use: occasionally, recent Drug use: none Medications and Allergies Chlorthalidone 25 mg PO DAILY 02/08/17 [History] hydrOXYzine HCl [Hydroxyzine HCl] 25 mg PO HS PRN 02/08/17 [History] Lisinopril [Zestril] 20 mg PO DAILY 01/14/18 [History] Atorvastatin Calcium [Lipitor] 20 mg PO HS 03/04/18 [History] Rivaroxaban [Xarelto] 20 mg PO DAILY 07/23/18 [History] Atenolol 100 mg PO DAILY 09/04/18 [History] Allergy/AdvReac Type Severity Reaction Status Date / Time aspirin Allergy Itching Verified 03/04/18 09:10 - Meds/Allergy Pre-op Review Medications Reviewed: Yes Allergies Reviewed: Yes Beta Blockers on Current Med List: Yes (Atenolol) If Beta Blockers taken, Date/Time (Last Dose taken): 09/04/2018 @ 1000 Anesthesia Results - Labs Laboratory Tests 09/03/18 09/03/18 09/03/18 15:51 15:51 15:51 WBC 7.6 Hgb 12.7 L Hct 40.2 Plt Count 368 PT 13.3 H INR 1.2 Sodium 133 L Potassium 3.7 Chloride 98 Carbon Dioxide 28 BUN 12 Creatinine 0.76 Est GFR (Non-Af Amer) > 60 Glucose 106 H - Imaging EKG: image reviewed (93bpm SR) Anesthesia Exam O2 Sat Height 1.73 m Height 1.73 m Weight 87.09 kg Weight 87.09 kg O2 Sat Vital Signs Temp Pulse Resp BP Pulse Ox 97.4 F L 53 18 105/65 100 09/04/18 14:27 09/04/18 14:27 09/04/18 14:27 09/04/18 14:27 09/04/18 14:27 Height: 5'8" Weight: 192# BMI = 29 NPO (# of Hours): MNOc - HEENT Pupil (Motor): Pupils equal, EOMI Mallampati: III Teeth: Missing, Poor dentition Oral Opening: Greater than 3 - [employer]AB[employer] LOC: Oriented [employer] Motor: Normal RUE, Normal LUE, Normal RLE, Normal LLE, Normal Face [employer] Sensory: Normal: RUE, LUE, RLE, LLE, Face - Cardiac Rhythm: Regular Murmur: None - Pulmonary Breath Sounds: bilateral Clear Respiratory Effort: Symmetrical Anesthesia Assess/Plan ASA Score: 3 (PVDz, Smoker, HTN, Chol) Modified Rocky Scale for Level of Consciousness: Cooperative, oriented, and tranquil Anesthetic Plan: General Monitoring Plan: Standard Monitors, A-Line Recovery Plan: PACU Anes Supervising Prov Stmt: Pt seen/evaluated, R&B Discussed, questions answered and consent obtained. Georgina Matthew MD
[2018-09-04] MEDS ORDERED: Famotidine 20 MG/2 ML VIAL IVP ONE (15:24)
[2018-09-04] MEDS ORDERED: Acetaminophen IV 1,000 MG/100 ML INFUS..BTL IVPB ONE (15:25)
[2018-09-04] MEDS ORDERED: Pregabalin 75 MG CAPSULE PO ONE (15:25)
--- NOTE | 2018-09-04 16:24 | History & Physical Report ---
Date of Encounter: 09/04/18 Time of Encounter: 16:23 24 Hour HP Update - Instructions Instructions: If the History and Physical is less than 30 days old and was completed prior to A.M. admission and or procedure and has NOT been updated on calendar day of procedure please complete this update prior to performing procedure. - Update Patient reports changes in Medical Condition: No Changes in examination, assessment, or condition: No Changes in Medication: No Preop tests/diagnostics Reviewed: Yes Surgery Remains Indicated: Yes Consent for Planned Operative Procedure(s) Verified: Yes - Pre-Operative Checklist Preoperative Checklist Indicated: Yes Prophylactic Antibiotic Ordered: Yes Home Medications Include Beta Benedicto: Yes Beta Benedicto Taken Today (Day of Surgery): Yes Beta Benedicto Taken Yesterday (Day Prior to Surgery): Yes Is VTE Prophylaxis Indicated?: Yes
[2018-09-04] MEDS ORDERED: *HR* Succinylcholine 200 MG/10 ML VIAL IVP ONE (17:12)
[2018-09-04] MEDS ORDERED: *HR* FentaNYL (PF) 100 MCG/2 ML VIAL ONE (17:12)
[2018-09-04] MEDS ORDERED: Lidocaine -MPF 2% 2 ML VIAL ONE (17:12)
[2018-09-04] MEDS ORDERED: Ondansetron 4 MG/2 ML VIAL ONE (17:12)
[2018-09-04] MEDS ORDERED: Dexamethasone 4 MG/ML VIAL ONE ×2 (17:12→18:45)
[2018-09-04] MEDS ORDERED: *HR* Propofol 200 MG/20 ML VIAL IVP ONE (17:12)
[2018-09-04] MEDS ORDERED: Heparin 1,000 UNITS/500 mL 500 ML ONE ×3 (17:22→19:51)
[2018-09-04] MEDS ORDERED: *HR* Midazolam HCl 2 MG/2 ML VIAL ONE (18:10)
[2018-09-04] MEDS ORDERED: *HR* Remifentanil 1 MG VIAL IVP ONE (18:49)
[2018-09-04] MEDS ORDERED: *HR* Heparin 5,000 UNIT/ML VIAL ONE (19:39)
[2018-09-04] MEDS ORDERED: EPHEDrine 50 MG/ML VIAL ONE (19:50)
[2018-09-04] MEDS ORDERED: Ondansetron 4 MG/2 ML VIAL IVP ONE (20:24)
[2018-09-04] MEDS ORDERED: *HR* Promethazine 25 MG/ML VIAL IVP PRN (20:24)
[2018-09-04] MEDS ORDERED: *HR* OxyCODONE Immed Rel 5 MG TABLET PO PRN (20:24)
[2018-09-04] MEDS ORDERED: *HR* Meperidine 25 MG/ML SYRINGE IVP PRN (20:24)
[2018-09-04] MEDS ORDERED: *HR* Magnesium Sulfate 1 GM/2 ML VIAL ONE (20:29)
--- NOTE | 2018-09-04 22:04 | Operative Note ---
Date of procedure: 09/04/18 Pre-op diagnosis: recurrent right graft thrombosis/PAD Post-op diagnosis: same Procedure: thrombectomy of left to right femoral-femoral bypass graft thrombectomy of right femoral-tibial bypass graft Complications: 0 Anesthesia: GETA Surgeon: Darvin Garg Was there an drug safety assistant present: No Estimated blood loss (cc): 200 Specimen: 0 Condition: stable Disposition: PACU Procedure in Detail: History Christiano Velasquez is a 53-year-old white male with severe and premature diffuse vascular disease. He has a right iliac occlusion and bilateral superficial femoral artery occlusions and severe tibial disease on the right. He has und ergone multiple operations in an attempt to try to address these issues with only temporary success. He had recently undergone a massive operation to try to reconstruct the right lower extremity after a third time graft thrombosis. He presented to the office earlier this week with worsening pain and was seen in the clinic. A CT scan was performed which demonstrated occlusion of both his femoral-femoral bypass graft and the right femoral to distal bypass graft. He now comes to the operating room and one last attempt to try to open these grafts. It should be noted that the grafts did thrombose while the patient was taking Xarleto. Procedure After informed consent was obtained the patient was taken to the operating room. General endotracheal anesthesia was established an arterial line was placed. The right lower extremity was sterilely prepped and draped. A timeout protocol was observed. An incision was made in the right groin through the previous surgical site. As expected there was significant dense scar present. It was difficult to dissect through this area and this was a tedious process. Eventually the grafts were identified as were the miami vessels and appropriate control was obtained. 5000 units heparin were administered. Transverse graftotomy was then made over the sebastian of the right femoral anastomosis of the femoral-femoral graft. Fresh thrombus was identified. A 4 Turkmen Cata catheter was then passed retrograde number of times and clot was removed and excellent pulsatile flow was achieved. This was then back flushed with heparinized saline and clamped. Attention was then directed to the right femoral distal graft. A 3 and 4 Turkmen Cata catheter was then passed antegrade through the graft through a second graftotomy incision over the femoral graft itself. It should be noted that the common femoral area was copiously irrigated with heparinized saline. Thrombus and atherosclerotic material was removed. Excellent backbleeding was achieved from the profunda once a long stringy clot was removed from the vessel. The catheters however would not pass into the distal vessel and so therefore a second incision was then made. This incision was placed through the previous incision at the [id number] popliteal area. Again as expected dense thick scar was encountered which encumbered the dissection but eventually the graft was identified in the scar and control obtained of the graft distally. A transverse graftotomy was made. The graft was then checked going retrograde and was excellent flow and no obstruction. Attempts at passing the 3 and 4 Turkmen F ogarty catheter distally were met with an obstruction after a distance of only approximately 4-5 cm. Tried to pass a 1 and 1-1/2 mm dilator was also met with the same result. It would appear on these findings than that the area was not reconstructable. Further attempted bypass grafting were not recommended or advised. Therefore the graft opening was closed with 6-0 Prolene. After appropriate backbleeding and flushing pulsatile flow was then placed into the graft though a Doppler signals were not identified on the table at the level of the ankle. The wounds were irrigated and then closed with absorbable suture. Dry sterile dressings were applied. The patient was extubated in the operating room. He was taken from the operating room to the recovery room in stable condition.
[2018-09-04] MEDS: *HR* HYDROmorphone (PF) 1 MG/ML SYRINGE IVP PRN ×2 (22:51→22:58)
--- NOTE | 2018-09-04 23:38 | Anesthesia Evaluation Post Op ---
Date of Encounter: 09/04/18 Time of Encounter: 23:37 - Vital Signs Vital Signs: Vital Signs/O2 Sat, Most Current Temp Pulse Resp BP Pulse Ox 99 F 85 12 105/70 100 09/04/18 23:20 09/04/18 23:20 09/04/18 23:20 09/04/18 23:20 09/04/18 23:20 - Lungs Lungs: Clear Ascult./Percussion - Airway Airway: Non-obstructed - Cardiovascular Regular Rate - Mental Status Mental Status: Alert & Oriented, Answers Appropriately - Pain Pain Scale used: Numeric (1 - 10) (tolerable) - Nausea Vomiting Nausea Vomiting: Not Present - Hydration Hydration: Ice chips, Davidson catheter - Discharge PostOp Status: Transfer Patient to floor
[2018-09-05] MEDS ORDERED: Naloxone 0.4 MG/ML INJ IVP PRN (00:02)
[2018-09-05] MEDS ORDERED: *HR* HYDROcodone/Acet 5/325 mg TABLET PO PRN (00:02)
[2018-09-05] MEDS ORDERED: Ketorolac 30 MG/ML VIAL IVP PRN (00:02)
[2018-09-05] MEDS ORDERED: hydrOXYzine pamoate 25 MG CAPSULE PO PRN (00:02)
[2018-09-05] MEDS ORDERED: Ondansetron 4 MG/2 ML VIAL IVP PRN (00:02)
[2018-09-05] MEDS ORDERED: Acetaminophen 325 MG TABLET PO PRN (00:02)
[2018-09-05] MEDS: *HR* OxyCODONE Immed Rel 5 MG TABLET PO PRN ×2 (02:15→08:26)
[2018-09-05 04:45] LABS: Basophils % 0.2 %; Hematocrit 34.1 % (37.5-50.1); Immature Granulocytes % 0.3 % (0-4); Lymphocytes # 0.8 K/mcL (0.6-4.6); Lymphocytes % 6.9 %; Mean Corpuscular HGB Conc 31.7 g/dL (31.6-35.5); Mean Corpuscular Volume 94.7 fL (83.0-100.0); Mean Platelet Volume 10.8 fL (9.4-12.4); Monocytes # 0.3 K/mcL (0.0-1.3); Monocytes % 2.7 %; Neutrophils # 10.8 K/mcL (1.6-8.9); Platelet Count 317 K/mcL (140-400); Red Cell Distribution Width 14.6 % (11.5-14.5); Segmented Neutrophils % 89.9 %
[2018-09-05 04:46] LABS: Hemoglobin 10.8 g/dL (12.9-16.9)
[2018-09-05 05:01] LABS: BUN/Creatinine Ratio 16 (6-26); Blood Urea Nitrogen 12 mg/dL (6-20); Calcium 8.3 mg/dL (8.6-10.3); Carbon Dioxide 22 mEq/L (23-29); Chloride 102 mEq/L (98-107); Glucose 180 mg/dL (70-105); Osmolality,Calculated 284 (280-300); Potassium 4.3 mEq/L (3.5-5.1); Sodium 135 mEq/L (136-145); eGFR For Non-African Americans > 60 (> 60)
[2018-09-05] MEDS ORDERED: *HR* Rivaroxaban 10 MG TABLET PO SCH (09:00)
[2018-09-05 17:00] VITALS: BP 108/68
--- NOTE | 2018-09-05 19:39 | Discharge Summary ---
Orders not resulted at time of discharge: Pending orders 09/05/18 Red Blood Cells [BBK] Routine Date of Encounter: 09/05/18 Time of Encounter: 17:18 - Discharge Diagnosis (1) PAD (peripheral artery disease) Priority: Primary Status: Chronic Comments: Recurrent thrombosis of bypass grafts with severe ischemia right lower extremity. Patient has undergone the thrombectomy of his grafts in an attempt to achieve limb salvage. The femoral-popliteal bypass graft had obliteration of the distal anastomotic area and so therefore recurrent thrombosis of this bypass graft is anticipated. The femoral-femoral bypass graft however is patent and flow is present through the profunda femoris artery. The overall prognosis for the right lower extremity is poor and the patient and his family are aware of this. Patient is aware that ultimately he will require a right lower extremity amputation. As he is still functional and can walk he will be discharged at this time and further decisions will be made based on his physical status. (2) HTN (hypertension) Priority: Secondary Status: Chronic Comments: Chronic hypertension. Patient actually is borderline hypotensive. His medications will be either reduced or held and will monitor his blood pressure at home. Qualifiers: Hypertension type: essential hypertension Qualified Code(s): I10 - Essential (primary) hypertension (3) HLD (hyperlipidemia) Priority: Secondary Status: Chronic Comments: History of hyperlipidemia Qualifiers: Hyperlipidemia type: unspecified Qualified Code(s): E78.5 - Hyperlipidemia, unspecified (4) Current use of anticoagulant therapy Priority: Secondary Status: Acute Comments: Patient is on Xarleto therapy in an attempt to prolong the patency of his bypass grafts. - Hospital Course Hospital course: Mr. Velasquez is a 53 year old male With severe right lower extremity vascular disease. He has a known iliac and superficial femoral artery occlusion as well as popliteal and tibial disease. He is undergone multiple procedures. The patient has recurrent thromboses of his grafts despite the use of Xarleto therapy. He was taken back to surgery yesterday for his last attempt at revascularization by performing thrombectomy. The patient tolerated procedure well. The distal aspect of the femoral tibial bypass graft could not be thrombectomized and it appeared to be obliterated. The prognosis for the right lower extremity is very poor and amputation is anticipated in the future. This was discussed with the patient and his family. For the time being as the patient is still functional he will permitted to be discharged and managed expectantly. - Time Spent with Patient Total time spent providing and/or coordinating discharge services: - Discharge Medications Prescriptions: HYDROcodone/Acet 5/325 mg [[place] 5-325 mg] 1 tab PO Q6HR PRN 10 Days #30 tablet PRN Reason: Moderate Pain Atenolol [Tenormin] 50 mg PO DAILY #30 tablet Home Medications: hydrOXYzine HCl [Hydroxyzine HCl] 25 mg PO HS PRN 02/08/17 [History] Atorvastatin Calcium [Lipitor] 20 mg PO HS 03/04/18 [History] Rivaroxaban [Xarelto] 20 mg PO DAILY 07/23/18 [History] Atenolol [Tenormin] 50 mg PO DAILY #30 tablet 09/05/18 [Rx] HYDROcodone/Acet 5/325 mg [[place] 5-325 mg] 1 tab PO Q6HR PRN 10 Days #30 tablet 09/05/18 [Rx] Allergies/Adverse Reactions: Allergy/AdvReac Type Severity Reaction Status Date / Time aspirin Allergy Itching Verified 03/04/18 09:10 Date of admission: 09/04/18 15:15 Primary care physician: Jacob García MD Consults: None Procedure(s) Performed: Thrombectomy of left to right femoral-femoral bypass graft and thrombectomy of left femoral tibial bypass graft Discharging clinician: Dravin Garg Anticipated date of discharge: 09/05/18 Exam Vital Signs, Last 4 Hours Pulse Resp BP Pulse Ox 09/05/18 16:58 91 18 108/68 99 General: Present: Conversant, No Apparent Distress HEENT: Present: Atraumatic Neuro: Present: Alert and responsive, No focal deficits noted Abdomen: Present: Soft Vascular: Present: Pulse, absent (No palpable pulses at the popliteal or ankle level. Very weak Doppler signal heard over the dorsalis pedis artery at the ankle.), Edema (Patient has mild edema of the right lower extremity as it is being kept in a deep dependent position because of the ischemia.), Color/Temperature (Right foot is cool but not cold.), Surgical incisions (Dry dressings over right groin incision and right calf incision) Skin: Present: No rashes noted on visualized skin - Patient Status Disposition: Home, Self-Care Condition: Good Functional capacity at discharge: independent ambulation Overall status at discharge: patient is progressing back to baseline - Discharge Instructions Follow Up With: Jacob García MD [Primary Care Provider] - 09/11/18 1:30 pm Darvin Garg MD [Partnered Physician] - 09/24/18 11:45 am Additional Instructions: Remove dressings from surgical sites tomorrow. Keep surgical sites dry for 5 days following surgery. Resume Xarleto therapy today. Reduce his atenolol to 50 mg a day (instead of previous dose of 100 mg a day). Hold lisinopril and chlorthalidone until further notice. Patient to measure blood pressure 1-2 times a day at home and to keep a record of these readings. Use incentive spirometer at home 10 times an hour while awake for the next 2 we eks. No lifting greater than 10 pounds. No automobile driving. No manual labor. - Diet and Activity Activity: increase activity as tolerated Diet: low fat, low cholesterol
== END 2018-09-05 18:10 | disposition home or self-care (01) | DRG 253 ==
LOC: SAMDAY 14:06 → 2NNU 15:15
PROVIDERS: ADMIT Surgery Vascular Surgery; ATTEND Surgery Vascular Surgery